=== PATIENT | female | born 1945 | race Caucasian/White ===

== ENCOUNTER → 2018-06-12 | Outpatient (CLI) | payer OTHER ==
[~2018-06-12] MED LIST: Acidophilus La1 EACH PO; Alprazolam0.25 MG PO; DULO60 PO; GABA300 PO; HYDACE10B PO; IPRA.03NI; LISI20; Mobic15 MG PO; TEMA30 PO; ZALE10
== END | disposition home or self-care (01) ==
LOC: PLD 07:45 → LAB SHORT 07:45
DX: D22.62 Melanocytic nevi of left upper limb, including shoulder (principal)
CPT/HCPCS: 88305

== ENCOUNTER 2018-07-19 19:15 | Inpatient (IN) | payer OTHER ==
[~2018-07-19] VITALS: Ht 167.6 cm; Wt 78.4 kg
[~2018-07-19 19:15] MED LIST changes: -ALBU90OI61 INH; -Abilify2 MG PO; -CEPH500 PO; -FURO40 PO; -HYDCOR10 PO; -PARO10 PO; -PRED5 PO; -Zanaflex4 MG PO
[2018-07-19 19:54] LABS: BASOPHILS ABSOLUTE AUTO 0.05 K/mm3 (0.00-0.23); BASOPHILS PERCENT AUTO 0 % (0-2); EOSINOPHILS ABSOLUTE AUTO 0.01 K/mm3 (0.00-0.68); EOSINOPHILS PERCENT AUTO 0 % (0-6); Hematocrit 36.4 % (33.0-51.0); Hemoglobin 12.6 g/dL (11.5-16.0); IMMATURE GRAN ABSOLUTE AUTO 0.11 K/mm3 (0.00-0.10); IMMATURE GRAN PERCENT AUTO 1 % (0-1); LYMPHOCYTES ABSOLUTE AUTO 1.21 K/mm3 (0.84-5.20); LYMPHOCYTES PERCENT AUTO 6 % (21-46); MONOCYTES ABSOLUTE AUTO 1.17 K/mm3 (0.16-1.47); MONOCYTES PERCENT AUTO 6 % (4-13); Mean Corpuscular HGB 31.3 pg (26.0-34.0); Mean Corpuscular HGB Conc 34.6 g/dL (31.5-36.5); Mean Corpuscular Volume 91 fL (80-100); Mean Platelet Volume 8.9 fL (9.1-12.4); NEUTROPHILS ABSOLUTE AUTO 17.04 K/mm3 (1.96-9.15); NEUTROPHILS PERCENT AUTO 87 % (41-73); Platelet Count 363 K/mm3 (150-400); RDW Coefficient Variation 13.2 % (11.7-14.2); RDW Standard Deviation 43.5 fL (35.1-46.3); Red Blood Cell Count 4.02 M/mm3 (3.80-5.20); White Blood Cell Count 19.59 K/mm3 (4.00-11.30)
[2018-07-19 20:17] LABS: Albumin, Blood 3.6 g/dL (3.4-5.0); Bilirubin, Total 0.7 mg/dL (0.1-1.0); Bun/Creatinine Ratio 22.4 (12.0-20.0); Creatinine, Blood 1.7 mg/dL (0.40-1.00); Globulin, Blood 3.7 g/dL (2.2-4.0); Potassium, Blood 3.4 mmol/L (3.5-5.5); Total Protein, Blood 7.3 g/dL (6.4-8.2)
[2018-07-19] MEDS ORDERED: PRED5 PO (21:47)
[2018-07-19] MEDS ORDERED: ALBU90OI61 INH (21:47)
[2018-07-19] MEDS ORDERED: FURO40 PO (21:47)
[2018-07-19] MEDS ORDERED: PARO10 PO (21:48)
[2018-07-19] MEDS ORDERED: Zanaflex4 MG PO (21:48)
[2018-07-19] MEDS ORDERED: Abilify2 MG PO (21:49)
--- NOTE | 2018-07-19 23:37 | NUR ---
PT ARRIVES TO ROOM 224 FROM ED DX SEPSIS SECONDARY TO TENSOYNOVITIS IN LEFT INDEX FINGER. PT WITH AN APPROX 1 CM TRANSVERSE LAC IN MIDDLE POST SIDE OF FINGER. NO DRAINAGE AT THIS TIME. PT HAS ERYTHEMA STREAKS ALL THE WAY UP FOR FA. WOUND WAS CLEANED WELL, PHOTO TAKEN, THEN WRAPPED WOUND WITH KERLEX AND SECURED WITH TAPE. LEFT HAND ELEVATED AND ICE APPLIED. PT WILL BE NPO AT MIDNIGHT FOR I&D TOMORROW WITH DR. GRAHAM. IVF INFUSING AND PHARMACY TO DOSE VANCO.
[2018-07-20 04:24] LABS: BASOPHILS ABSOLUTE AUTO 0.03 K/mm3 (0.00-0.23); BASOPHILS PERCENT AUTO 0 % (0-2); EOSINOPHILS ABSOLUTE AUTO 0.03 K/mm3 (0.00-0.68); EOSINOPHILS PERCENT AUTO 0 % (0-6); Hematocrit 31.5 % (33.0-51.0); Hemoglobin 10.8 g/dL (11.5-16.0); IMMATURE GRAN ABSOLUTE AUTO 0.05 K/mm3 (0.00-0.10); IMMATURE GRAN PERCENT AUTO 1 % (0-1); LYMPHOCYTES ABSOLUTE AUTO 0.79 K/mm3 (0.84-5.20); LYMPHOCYTES PERCENT AUTO 8 % (21-46); MONOCYTES PERCENT AUTO 7 % (4-13); Mean Corpuscular HGB 32.3 pg (26.0-34.0); Mean Corpuscular HGB Conc 34.3 g/dL (31.5-36.5); Mean Platelet Volume 8.8 fL (9.1-12.4); NEUTROPHILS ABSOLUTE AUTO 8.19 K/mm3 (1.96-9.15); NEUTROPHILS PERCENT AUTO 84 % (41-73); Platelet Count 276 K/mm3 (150-400); RDW Coefficient Variation 13.2 % (11.7-14.2); RDW Standard Deviation 45.7 fL (35.1-46.3); Red Blood Cell Count 3.34 M/mm3 (3.80-5.20); White Blood Cell Count 9.79 K/mm3 (4.00-11.30)
[2018-07-20 04:31] LABS: Mean Corpuscular Volume 94 fL (80-100)
[2018-07-20 04:51] LABS: Anion Gap 8 mmol/L (6-16); Blood Urea Nitrogen 36 mg/dL (8-24); Bun/Creatinine Ratio 23.1 (12.0-20.0); CO2, Blood 28 mmol/L (21-32); Calcium, Blood 8.1 mg/dL (8.5-10.1); Chloride, Blood 96 mmol/L (98-108); Creatinine, Blood 1.56 mg/dL (0.40-1.00); Glomerular Filtration Rate 34 (60-); Glucose, Blood 92 mg/dL (70-99); Sodium, Blood 132 mmol/L (136-145); Vancomycin, Random 23.3 ug/mL
--- NOTE | 2018-07-20 05:16 | NUR ---
NEW ADMIT THIS SHIFT FOR TENOSYNOVITIS. HAS DONE GREAT DURING THE NIGHT. PAIN HAS IMPROVED, LABS IMPROVED AND AFEBRILE THIS AM. PLAN FOR I&D OF WOUND TODAY. CONT WITH IVF AND IV ABX. PT NPO, SURGICAL PACKET ON CHART. CALL LIGHT IN REACH. WILL REPORT OFF TO NEXT SHIFT.
--- NOTE | 2018-07-20 05:21 | NUR ---
DID NOT K WAS 3.[address] ADAMS AND OBTAINED ORDER FOR KCL 40MEQ.
--- NOTE | 2018-07-20 19:25 | NUR ---
SUMMARY VSS, L INDEX FINGER ELEVATED, DSG CHANGED AFTER SHOWER TODAY, DRAINING SS DRAINAGE, AMBULATING IN ROOM WITH A WALKER, NPO AFTER MN FOR I&D IN AM.
[2018-07-21 04:41] LABS: BASOPHILS ABSOLUTE AUTO 0.03 K/mm3 (0.00-0.23); BASOPHILS PERCENT AUTO 0 % (0-2); EOSINOPHILS ABSOLUTE AUTO 0.04 K/mm3 (0.00-0.68); EOSINOPHILS PERCENT AUTO 0 % (0-6); Hematocrit 30.3 % (33.0-51.0); Hemoglobin 10.2 g/dL (11.5-16.0); IMMATURE GRAN ABSOLUTE AUTO 0.04 K/mm3 (0.00-0.10); IMMATURE GRAN PERCENT AUTO 0 % (0-1); LYMPHOCYTES ABSOLUTE AUTO 1.04 K/mm3 (0.84-5.20); LYMPHOCYTES PERCENT AUTO 11 % (21-46); MONOCYTES ABSOLUTE AUTO 0.73 K/mm3 (0.16-1.47); MONOCYTES PERCENT AUTO 8 % (4-13); Mean Corpuscular HGB 31.6 pg (26.0-34.0); Mean Corpuscular HGB Conc 33.7 g/dL (31.5-36.5); Mean Corpuscular Volume 94 fL (80-100); Mean Platelet Volume 9.1 fL (9.1-12.4); NEUTROPHILS PERCENT AUTO 80 % (41-73); Platelet Count 240 K/mm3 (150-400); RDW Coefficient Variation 13.2 % (11.7-14.2); RDW Standard Deviation 45.3 fL (35.1-46.3); Red Blood Cell Count 3.23 M/mm3 (3.80-5.20); White Blood Cell Count 9.38 K/mm3 (4.00-11.30)
[2018-07-21 05:02] LABS: Bun/Creatinine Ratio 19.8 (12.0-20.0); Calcium, Blood 8.1 mg/dL (8.5-10.1); Creatinine, Blood 1.06 mg/dL (0.40-1.00); Potassium, Blood 3.1 mmol/L (3.5-5.5)
--- NOTE | 2018-07-21 05:02 | NUR ---
PT VSS T/O NIGHT, PAIN MGD W/NORCO W/REP RELIEF. LUE ELEVATED IN BED, DRESSING INTACT W/NO VISIBLE DRNG NOTED. PT DENIED CHANGES IN SENSATION. PT NPO POST MIDNIGHT FOR POSS OR TODAY; IVF CONT PER ORDERS. PT UP IN ROOM W/FWW+SBA, IS USING CALL LIGHT FOR ASSISTANCE, WILL CONT TO MONITOR UNTIL REP GIVEN TO ONCOMING RN.
--- NOTE | 2018-07-21 18:51 | NUR ---
SUMMARY MEDICATED WITH 1 NORCO FOR PAIN X2 TODAY, AMBULATED DOWN THE HALLS WITH A WALKER, TOLERATED WELL, VSS, DSG CHANGED BY DR. OLSON TODAY, L HAND ELEVATED WITH PILLOWS, NO ACUTE CHANGES THIS SHIFT
[2018-07-22 04:17] LABS: BASOPHILS ABSOLUTE AUTO 0.01 K/mm3 (0.00-0.23); BASOPHILS PERCENT AUTO 0 % (0-2); EOSINOPHILS ABSOLUTE AUTO 0.01 K/mm3 (0.00-0.68); EOSINOPHILS PERCENT AUTO 0 % (0-6); Hematocrit 30.2 % (33.0-51.0); Hemoglobin 10.2 g/dL (11.5-16.0); IMMATURE GRAN ABSOLUTE AUTO 0.06 K/mm3 (0.00-0.10); IMMATURE GRAN PERCENT AUTO 1 % (0-1); LYMPHOCYTES ABSOLUTE AUTO 0.96 K/mm3 (0.84-5.20); LYMPHOCYTES PERCENT AUTO 11 % (21-46); MONOCYTES ABSOLUTE AUTO 0.55 K/mm3 (0.16-1.47); MONOCYTES PERCENT AUTO 6 % (4-13); Mean Corpuscular HGB 31.6 pg (26.0-34.0); Mean Corpuscular HGB Conc 33.8 g/dL (31.5-36.5); Mean Corpuscular Volume 94 fL (80-100); Mean Platelet Volume 9.2 fL (9.1-12.4); NEUTROPHILS ABSOLUTE AUTO 7.42 K/mm3 (1.96-9.15); NEUTROPHILS PERCENT AUTO 82 % (41-73); Platelet Count 293 K/mm3 (150-400); RDW Standard Deviation 44.7 fL (35.1-46.3); Red Blood Cell Count 3.23 M/mm3 (3.80-5.20); White Blood Cell Count 9.01 K/mm3 (4.00-11.30)
[2018-07-22 04:32] LABS: Anion Gap 7 mmol/L (6-16); Blood Urea Nitrogen 13 mg/dL (8-24); Bun/Creatinine Ratio 14.7 (12.0-20.0); CO2, Blood 25 mmol/L (21-32); Calcium, Blood 8.4 mg/dL (8.5-10.1); Chloride, Blood 105 mmol/L (98-108); Creatinine, Blood 0.88 mg/dL (0.40-1.00); Glomerular Filtration Rate >60 (60-); Glucose, Blood 111 mg/dL (70-99); Potassium, Blood 3.7 mmol/L (3.5-5.5); Sodium, Blood 137 mmol/L (136-145)
--- NOTE | 2018-07-22 05:51 | NUR ---
SHIFT SUMMARY: NO ACUTE CHANGES OVER NIGHT. PT A&O X4, VS WNL. PAIN MANAGED WITH NORCO PER EMAR. IND IN ROOM W/FWW. VOIDING WELL. GAUZE TO L 2ND DIGIT INTACT WITH SML AMT OF DRG NOTED. WILL CTM AND REPORT TO DAY RN.
--- NOTE | 2018-07-22 20:30 | NUR ---
CHANGED ON MY FINGER."
--- NOTE | 2018-07-23 04:36 | NUR ---
SHIFT SUMMARY: NO ACUTE CHANGES OVER NIGHT. PT MEDICATED FOR PAIN PER EMAR. DRESSING TO FINGER IS C/D/I. ABX INFUSING. INDEPENDENT IN RM W/FWW. GRETCHEN ACTIVITY WELL. NO CONCERNS AT THIS TIME.
[2018-07-23 05:41] LABS: BASOPHILS ABSOLUTE AUTO 0.01 K/mm3 (0.00-0.23); BASOPHILS PERCENT AUTO 0 % (0-2); EOSINOPHILS ABSOLUTE AUTO 0.01 K/mm3 (0.00-0.68); EOSINOPHILS PERCENT AUTO 0 % (0-6); Hematocrit 30.9 % (33.0-51.0); Hemoglobin 10.4 g/dL (11.5-16.0); IMMATURE GRAN ABSOLUTE AUTO 0.06 K/mm3 (0.00-0.10); IMMATURE GRAN PERCENT AUTO 1 % (0-1); LYMPHOCYTES ABSOLUTE AUTO 1.14 K/mm3 (0.84-5.20); LYMPHOCYTES PERCENT AUTO 16 % (21-46); MONOCYTES ABSOLUTE AUTO 0.54 K/mm3 (0.16-1.47); MONOCYTES PERCENT AUTO 8 % (4-13); Mean Corpuscular HGB 32.2 pg (26.0-34.0); Mean Corpuscular HGB Conc 33.7 g/dL (31.5-36.5); Mean Corpuscular Volume 96 fL (80-100); Mean Platelet Volume 9.2 fL (9.1-12.4); NEUTROPHILS ABSOLUTE AUTO 5.31 K/mm3 (1.96-9.15); NEUTROPHILS PERCENT AUTO 75 % (41-73); Platelet Count 307 K/mm3 (150-400); Red Blood Cell Count 3.23 M/mm3 (3.80-5.20); White Blood Cell Count 7.07 K/mm3 (4.00-11.30)
[2018-07-23 06:03] LABS: Anion Gap 5 mmol/L (6-16); Blood Urea Nitrogen 10 mg/dL (8-24); Bun/Creatinine Ratio 13.1 (12.0-20.0); CO2, Blood 27 mmol/L (21-32); Calcium, Blood 8.5 mg/dL (8.5-10.1); Chloride, Blood 106 mmol/L (98-108); Creatinine, Blood 0.77 mg/dL (0.40-1.00); Glomerular Filtration Rate >60 (60-); Glucose, Blood 110 mg/dL (70-99); Sodium, Blood 138 mmol/L (136-145)
--- NOTE | 2018-07-23 10:20 | NUR ---
DR ARMENDARIZ HERE TO SEE PT.
--- NOTE | 2018-07-23 13:10 | NUR ---
PT REQ TO HAVE NEW IV PLACED TO L[facility]. DISCUSSED SWITCHING TO PO. PT REQ TO HAVE IV ABX UNTIL SEEN BY DR Jensen
[2018-07-23] MEDS ORDERED: HYDCOR10 PO (18:03)
[2018-07-23] MEDS ORDERED: CEPH500 PO (18:03)
--- NOTE | 2018-07-23 18:15 | NUR ---
DISCHARGE: PT REPORTS UNDERSTANDING OF DISCHARGE INSTRUCTIONS INCLUDING DRESSING CHANGES, WHICH WAS RECENTLY DONE PER DR Jensen'S INSTRUCTIONS. PT SENT WITH DRESSING SUPPLIES. MEDICATIONS CALLED TO PT'S PHARMACY OF CHOICE. FAMILY HERE TO GIVE PT RIDE HOME. PT SENT WITH BELONGINGS WELL.
== END 2018-07-23 18:15 | disposition home or self-care (01) | DRG 872 ==
LOC: ER 19:15 → SURS 21:37
PROVIDERS: Internal Medicine; Physician Assistant; ADMIT Hospitalist
PROC: 0HDGXZZ Extraction of Left Hand Skin, External Approach (ICD-10-PCS; principal; 2018-07-20)
DX: A41.02 Sepsis due to Methicillin resistant Staphylococcus aureus (principal); N17.9 Acute kidney failure, unspecified; E87.1 Hypo-osmolality and hyponatremia; E27.40 Unspecified adrenocortical insufficiency; R65.20 Severe sepsis without septic shock; L03.012 Cellulitis of left finger; E87.6 Hypokalemia; F32.9 Major depressive disorder, single episode, unspecified; I10 Essential (primary) hypertension; Z85.3 Personal history of malignant neoplasm of breast; Z79.52 Long term (current) use of systemic steroids; G62.9 Polyneuropathy, unspecified; M79.7 Fibromyalgia; J44.9 Chronic obstructive pulmonary disease, unspecified; F17.210 Nicotine dependence, cigarettes, uncomplicated; E86.0 Dehydration
CPT/HCPCS: 36415; 73140; 80048; 80053; 80202; 83605; 85025; 90471; 90714; 93005; 93010; 94760; 94762; 96361; 96374; 96375; 99284-25; J0690; J1170; J1650; J1720; J2543; J3010; J3370; J7030; J7050; J7120

== ENCOUNTER → 2018-07-19 | Outpatient (CLI) | payer OTHER ==
[~2018-07-19] MED LIST changes: +ALBU90OI61 INH; +Abilify2 MG PO; +CEPH500 PO; +FURO40 PO; -HYDACE10B PO; +HYDCOR10 PO; -LISI20; +Norco 10-325 T1 EACH PO; +PARO10 PO; +PRED5 PO; +ZESTORETIC 20-1 EAC1 PO; +Zanaflex4 MG PO
== END | disposition home or self-care (01) ==
LOC: LAB SHORT 20:08 → LAB EV 20:08
DX: L08.9 Local infection of the skin and subcutaneous tissue, unspecified (principal)
CPT/HCPCS: 87070; 87075; 87077; 87147; 87186; 87205

== ENCOUNTER 2018-08-04 12:00 | Day surgery (SDC) | payer OTHER ==
[~2018-08-04 12:00] MED LIST changes: +ALBU90OI61 INH; +Abilify2 MG PO; +CEPH500 PO; +FURO40 PO; +HYDCOR10 PO; +PARO10 PO; +PRED5 PO; +Zanaflex4 MG PO
== END 2018-08-04 23:49 | disposition home or self-care (01) ==
LOC: WOUND 12:00
DX: S61.211A Laceration without foreign body of left index finger without damage to nail, initial encounter (principal); B95.0 Streptococcus, group A, as the cause of diseases classified elsewhere; B95.61 Methicillin susceptible Staphylococcus aureus infection as the cause of diseases classified elsewhere; I12.0 Hypertensive chronic kidney disease with stage 5 chronic kidney disease or end stage renal disease; N18.6 End stage renal disease; D63.1 Anemia in chronic kidney disease; J45.909 Unspecified asthma, uncomplicated; M19.90 Unspecified osteoarthritis, unspecified site; F17.210 Nicotine dependence, cigarettes, uncomplicated; W26.8XXA Contact with other sharp object(s), not elsewhere classified, initial encounter
CPT/HCPCS: G0463

== ENCOUNTER 2018-08-11 14:30 | Day surgery (SDC) | payer OTHER | END 2018-08-11 16:00 | disposition home or self-care (01) | LOC: WOUND 14:30 | DX: S61.211A Laceration without foreign body of left index finger without damage to nail, initial encounter (principal); B95.0 Streptococcus, group A, as the cause of diseases classified elsewhere; B95.61 Methicillin susceptible Staphylococcus aureus infection as the cause of diseases classified elsewhere; I12.0 Hypertensive chronic kidney disease with stage 5 chronic kidney disease or end stage renal disease; N18.6 End stage renal disease; D63.1 Anemia in chronic kidney disease; J45.909 Unspecified asthma, uncomplicated | CPT/HCPCS: G0463 ==

== ENCOUNTER 2018-08-18 14:47 | Day surgery (SDC) | payer OTHER | END 2018-08-18 23:05 | disposition home or self-care (01) | LOC: WOUND 14:47 | DX: S61.211A Laceration without foreign body of left index finger without damage to nail, initial encounter (principal); B95.0 Streptococcus, group A, as the cause of diseases classified elsewhere; B95.61 Methicillin susceptible Staphylococcus aureus infection as the cause of diseases classified elsewhere; I89.0 Lymphedema, not elsewhere classified; J45.909 Unspecified asthma, uncomplicated; I12.0 Hypertensive chronic kidney disease with stage 5 chronic kidney disease or end stage renal disease; N18.6 End stage renal disease; W45.8XXA Other foreign body or object entering through skin, initial encounter | CPT/HCPCS: G0463 ==

== ENCOUNTER 2018-08-25 14:45 | Day surgery (SDC) | payer OTHER | END 2018-08-25 23:02 | disposition home or self-care (01) | LOC: WOUND 14:45 | DX: S61.211A Laceration without foreign body of left index finger without damage to nail, initial encounter (principal); B95.0 Streptococcus, group A, as the cause of diseases classified elsewhere; B95.61 Methicillin susceptible Staphylococcus aureus infection as the cause of diseases classified elsewhere; I12.0 Hypertensive chronic kidney disease with stage 5 chronic kidney disease or end stage renal disease; N18.6 End stage renal disease; D63.1 Anemia in chronic kidney disease; M06.9 Rheumatoid arthritis, unspecified; M19.90 Unspecified osteoarthritis, unspecified site; G62.9 Polyneuropathy, unspecified; J45.909 Unspecified asthma, uncomplicated ==

== ENCOUNTER 2018-09-01 00:26 | Day surgery (SDC) | payer OTHER | END 2018-09-02 22:59 | disposition home or self-care (01) | LOC: WOUND 00:26 | DX: S61.211A Laceration without foreign body of left index finger without damage to nail, initial encounter (principal); B95.0 Streptococcus, group A, as the cause of diseases classified elsewhere; B95.61 Methicillin susceptible Staphylococcus aureus infection as the cause of diseases classified elsewhere; J45.909 Unspecified asthma, uncomplicated; I12.0 Hypertensive chronic kidney disease with stage 5 chronic kidney disease or end stage renal disease; N18.6 End stage renal disease; M06.9 Rheumatoid arthritis, unspecified; M19.90 Unspecified osteoarthritis, unspecified site ==

== ENCOUNTER 2018-09-08 00:36 | Day surgery (SDC) | payer OTHER | END 2018-09-08 23:16 | disposition home or self-care (01) | LOC: WOUND 00:36 | DX: S61.211A Laceration without foreign body of left index finger without damage to nail, initial encounter (principal); B95.0 Streptococcus, group A, as the cause of diseases classified elsewhere; B95.61 Methicillin susceptible Staphylococcus aureus infection as the cause of diseases classified elsewhere ==

== ENCOUNTER 2018-09-22 14:49 | Day surgery (SDC) | payer OTHER | END 2018-09-22 23:06 | disposition home or self-care (01) | LOC: WOUND 14:49 | DX: S61.211A Laceration without foreign body of left index finger without damage to nail, initial encounter (principal); B95.0 Streptococcus, group A, as the cause of diseases classified elsewhere; B95.61 Methicillin susceptible Staphylococcus aureus infection as the cause of diseases classified elsewhere; W26.8XXA Contact with other sharp object(s), not elsewhere classified, initial encounter | CPT/HCPCS: G0463 ==

== ENCOUNTER 2018-09-25 08:16 | Emergency (ER) | payer OTHER ==
[~2018-09-25] VITALS: Ht 157.5 cm; Wt 77.1 kg
[2018-09-25 08:51] LABS: Source, Urine Catheter
[2018-09-25 08:54] LABS: Bilirubin, Urine Neg (Neg); Blood, Urine Neg (Neg); Glucose Qualitative, Urine Neg (Neg); Ketones, Urine Neg (Neg); Leukocyte Esterase, Urine 2+ (Neg); Nitrite, Urine Neg (Neg); Protein, Urine Neg (Neg); Urobilinogen, Urine NORM (Normal)
[2018-09-25 09:28] LABS: Appearance, Urine Hazy (Clear); Color, Urine Yellow (P-Yellow)
[2018-09-25 09:31] LABS: Bacteria Mod /hpf; Red Blood Cells, Urine 0-2 /hpf (0-2); Squamous Epithelial Cells Many /hpf (Few)
[2018-09-25] MEDS ORDERED: PARO10 PO (14:36)
[2018-09-25] MEDS ORDERED: Sulfamethoxazo1 EAC4 PO (14:36)
[2018-09-25] MEDS ORDERED: FURO40 PO (14:37)
[2018-09-25] MEDS ORDERED: ZESTORETIC 20-251 EA PO (14:37)
[2018-09-25] MEDS ORDERED: Mobic15 MG PO (14:38)
== END 2018-09-25 17:16 | disposition home or self-care (01) ==
LOC: ER 08:16
PROVIDERS: Emergency Medicine
DX: R33.9 Retention of urine, unspecified (principal); Z79.899 Other long term (current) drug therapy; F17.210 Nicotine dependence, cigarettes, uncomplicated
CPT/HCPCS: 76857; 81001; 87086; 99284-25; P9612

== ENCOUNTER 2018-12-06 10:31 | Emergency (ER) | payer OTHER ==
[~2018-12-06] VITALS: Ht 165.1 cm; Wt 72.6 kg
[~2018-12-06 10:31] MED LIST changes: +Sulfamethoxazo1 EAC4 PO; +ZESTORETIC 20-251 EA PO
[2018-12-06] MEDS ORDERED: Hydrocodone-Ap1 EA20 PO (10:43)
[2018-12-06 12:00] LABS: Source, Urine Catheter
[2018-12-06 12:03] LABS: Bilirubin, Urine Neg (Neg); Blood, Urine 1+ (Neg); Glucose Qualitative, Urine Neg (Neg); Ketones, Urine Neg (Neg); Leukocyte Esterase, Urine 3+ (Neg); Nitrite, Urine Pos (Neg); Protein, Urine Neg (Neg); Urobilinogen, Urine NORM (Normal)
[2018-12-06 12:09] LABS: Appearance, Urine Hazy (Clear); Color, Urine Yellow (P-Yellow)
[2018-12-06 12:11] LABS: Red Blood Cells, Urine 0-2 /hpf (0-2); White Blood Cells, Urine 50-100 /hpf (0-5)
[2018-12-06 12:12] LABS: Amorphous Heavy ({null, 0-Heavy}); Bacteria Many /hpf; Squamous Epithelial Cells Not Seen /hpf (Few)
[2018-12-06 12:13] LABS: Transitional Epithelial Cells Few /hpf ({null, 0-Rare})
== END 2018-12-06 12:10 | disposition home or self-care (01) ==
LOC: ER 10:31
PROVIDERS: Emergency Medicine
DX: T83.038A Leakage of other urinary catheter, initial encounter (principal); R33.9 Retention of urine, unspecified; Z79.899 Other long term (current) drug therapy; F17.200 Nicotine dependence, unspecified, uncomplicated
CPT/HCPCS: 81001; 87077; 87086; 87186; 99283

== ENCOUNTER → 2019-01-03 | Outpatient (CLI) | payer OTHER ==
[~2019-01-03] MED LIST changes: +Hydrocodone-Ap1 EA20 PO
== END | disposition home or self-care (01) ==
LOC: LAB EV 12:25 → LAB SHORT 12:25
DX: N39.0 Urinary tract infection, site not specified (principal)
CPT/HCPCS: 87077; 87086; 87186

== ENCOUNTER 2019-10-01 14:08 | Inpatient (IN) | payer OTHER ==
[~2019-10-01] VITALS: Ht 162.6 cm; Wt 65.8 kg
[2019-10-01 14:29] LABS: BASOPHILS ABSOLUTE AUTO 0.02 K/mm3 (0.00-0.23); BASOPHILS PERCENT AUTO 0 % (0-2); EOSINOPHILS ABSOLUTE AUTO 0.01 K/mm3 (0.00-0.68); EOSINOPHILS PERCENT AUTO 0 % (0-6); Hematocrit 32.8 % (33.0-51.0); Hemoglobin 11.6 g/dL (11.5-16.0); IMMATURE GRAN ABSOLUTE AUTO 0.02 K/mm3 (0.00-0.10); IMMATURE GRAN PERCENT AUTO 0 % (0-1); LYMPHOCYTES ABSOLUTE AUTO 0.68 K/mm3 (0.84-5.20); LYMPHOCYTES PERCENT AUTO 15 % (21-46); MONOCYTES ABSOLUTE AUTO 0.42 K/mm3 (0.16-1.47); MONOCYTES PERCENT AUTO 9 % (4-13); Mean Corpuscular HGB 29.9 pg (26.0-34.0); Mean Corpuscular HGB Conc 35.4 g/dL (31.5-36.5); Mean Corpuscular Volume 85 fL (80-100); Mean Platelet Volume 8.8 fL (9.1-12.4); NEUTROPHILS ABSOLUTE AUTO 3.52 K/mm3 (1.96-9.15); NEUTROPHILS PERCENT AUTO 75 % (41-73); Platelet Count 297 K/mm3 (150-400); RDW Coefficient Variation 11.9 % (11.7-14.2); RDW Standard Deviation 36.5 fL (35.1-46.3); Red Blood Cell Count 3.88 M/mm3 (3.80-5.20); White Blood Cell Count 4.67 K/mm3 (4.00-11.30)
[2019-10-01 15:03] LABS: Alanine Aminotransfer (ALT/SGP 20 U/L (12-78); Albumin, Blood 3.3 g/dL (3.4-5.0); Albumin/Globulin Ratio 1.1 (0.8-1.8); Alk Phos 95 U/L (50-136); Anion Gap 10 mmol/L (6-16); Aspartate Aminotrans (AST/SGOT 20 U/L (12-37); Bilirubin, Total 0.4 mg/dL (0.1-1.0); Blood Urea Nitrogen 24 mg/dL (8-24); Bun/Creatinine Ratio 18.9 (12.0-20.0); CO2, Blood 29 mmol/L (21-32); Calcium, Blood 7.7 mg/dL (8.5-10.1); Chloride, Blood 82 mmol/L (98-108); Creatinine, Blood 1.27 mg/dL (0.40-1.00); Globulin, Blood 3.1 g/dL (2.2-4.0); Glomerular Filtration Rate 44 (60-); Glucose, Blood 111 mg/dL (70-99); Potassium, Blood 2.9 mmol/L (3.5-5.5); Sodium, Blood 121 mmol/L (136-145); Total Protein, Blood 6.4 g/dL (6.4-8.2); Troponin I <0.015 ng/mL (0.000-0.040)
[2019-10-01] MEDS ORDERED: POTCHL20ER PO (16:35)
[2019-10-01] MEDS ORDERED: ESCI10 PO (16:36)
[2019-10-01] MEDS ORDERED: Norco 10-325 T1 EACH PO (16:36)
[2019-10-01] MEDS ORDERED: BUME2 PO (16:36)
[2019-10-01] MEDS ORDERED: ZALE10 PO (16:36)
[2019-10-01] MEDS ORDERED: DICY20 PO (16:37)
[2019-10-01] MEDS ORDERED: LISINOPRIL-HCT1 EAC1 PO (16:37)
[2019-10-01] MEDS ORDERED: ASCO500 PO (16:38)
[2019-10-01] MEDS ORDERED: Fludrocortison0.1 MG PO (16:38)
[2019-10-01] MEDS ORDERED: PREG100 PO (16:38)
[2019-10-01 20:07] LABS: Bun/Creatinine Ratio 21.2 (12.0-20.0); Calcium, Blood 7.6 mg/dL (8.5-10.1); Creatinine, Blood 1.13 mg/dL (0.40-1.00); Potassium, Blood 3.1 mmol/L (3.5-5.5)
[2019-10-02 05:22] LABS: Hematocrit 29.2 % (33.0-51.0); Hemoglobin 10.4 g/dL (11.5-16.0); Mean Corpuscular HGB 30.6 pg (26.0-34.0); Mean Corpuscular HGB Conc 35.6 g/dL (31.5-36.5); Mean Corpuscular Volume 86 fL (80-100); Platelet Count 295 K/mm3 (150-400); RDW Standard Deviation 37.9 fL (35.1-46.3); White Blood Cell Count 3.17 K/mm3 (4.00-11.30)
[2019-10-02 05:49] LABS: Calcium, Blood 7.5 mg/dL (8.5-10.1); Creatinine, Blood 1.04 mg/dL (0.40-1.00); Magnesium, Blood 1.5 mg/dL (1.6-2.4); Potassium, Blood 2.8 mmol/L (3.5-5.5)
--- NOTE | 2019-10-02 07:13 | NUR ---
SUMMARY PT ARRIVED TO FLOOR IN NO DISTRESS. PT HAS REMAINED IN BED AND DENIED ANY DIZZINESS. PT SLEPT WELL AFTER EATING. PT IS AWAKE THIS AM IN NO DISTRESS. CALL LIGHT IN REACH
--- NOTE | 2019-10-02 17:14 | NUR ---
PT HAS BEEN AOX4 AND COOPERATIVE OF CARE. PT IS A ONE PERSON TO BEDSIDE COMMODE TO HELP WITH HER LINES. PT CALLS APPROPRIATELY AND HAS CALL LIGHT WITHING REACH. DENIES ANY PAIN AT THIS TIME WILL CONTINUE TO MONITOR.
--- NOTE | 2019-10-03 04:23 | NUR ---
SUMMARY PT HAD NO ISSUES NOTED. PT EAGER TO GO HOME. PTHAS SLEPT T/O SHIFT. PT CURRENTLY SLEEPING AND BREATHING EASY. CALL LIGHT IN REACH.
[2019-10-03 09:29] LABS: Anion Gap 6 mmol/L (6-16); Blood Urea Nitrogen 15 mg/dL (8-24); Bun/Creatinine Ratio 16.6 (12.0-20.0); CO2, Blood 26 mmol/L (21-32); Calcium, Blood 7.8 mg/dL (8.5-10.1); Chloride, Blood 99 mmol/L (98-108); Glomerular Filtration Rate >60 (60-); Glucose, Blood 79 mg/dL (70-99); Magnesium, Blood 1.6 mg/dL (1.6-2.4); Potassium, Blood 3.6 mmol/L (3.5-5.5); Sodium, Blood 131 mmol/L (136-145)
[2019-10-03 09:39] LABS: Source, Urine Clean Catch
[2019-10-03 09:46] LABS: Bilirubin, Urine Neg (Neg); Blood, Urine Neg (Neg); Glucose Qualitative, Urine Neg (Neg); Ketones, Urine Neg (Neg); Leukocyte Esterase, Urine 3+ (Neg); Nitrite, Urine Pos (Neg); Protein, Urine Neg (Neg); Specific Gravity, Urine 1.005 (1.003-1.022); Urobilinogen, Urine NORM (Normal)
[2019-10-03 10:08] LABS: Appearance, Urine Hazy (Clear); Color, Urine Pale Yellow (P-Yellow)
[2019-10-03 10:15] LABS: Red Blood Cells, Urine 0-2 /hpf (0-2)
[2019-10-03 10:16] LABS: Bacteria Many /hpf; Squamous Epithelial Cells Rare /hpf (Few)
--- NOTE | 2019-10-03 14:12 | NUR ---
DISCHARGE INSTRUCTIONS REVIEWED WITH PT. IV DC'D INTACT BY RN STUDENT. F/U APPT MADE WITH DR PARKER FOR TUESDAY. NO NEW RX. PT AWAITING DAUGHTER FOR RIDE HOME.
--- NOTE | 2019-10-03 14:25 | NUR ---
PT DISCHARGED HOME, ESCORTED OUT TO DAUGHTER AT 1425.
== END 2019-10-03 14:25 | disposition home or self-care (01) | DRG 312 ==
LOC: ER 14:08 → PCU 14:09 → MEDS 19:51
PROVIDERS: Emergency Medicine; Internal Medicine; Nurse Practitioner Acute Care; ADMIT Internal Medicine
DX: I95.1 Orthostatic hypotension (principal); E87.1 Hypo-osmolality and hyponatremia; N17.9 Acute kidney failure, unspecified; R55 Syncope and collapse; E87.6 Hypokalemia; E83.42 Hypomagnesemia; I10 Essential (primary) hypertension; E86.0 Dehydration; T50.1X5A Adverse effect of loop [high-ceiling] diuretics, initial encounter; M79.7 Fibromyalgia; F32.9 Major depressive disorder, single episode, unspecified; G62.0 Drug-induced polyneuropathy; Z85.3 Personal history of malignant neoplasm of breast; Z92.21 Personal history of antineoplastic chemotherapy; Z92.3 Personal history of irradiation
CPT/HCPCS: 36415; 71045; 80048; 80053; 80400; 81001; 82533; 83735; 84100; 84484; 85025; 85027; 93005; 93010; 96361; 96365; 96366; 96367; 96372; 96375; 99285-25; A9270; A9270-GY; G0378; J0834; J1650; J1720; J3475; J3480; J7030

== ENCOUNTER 2019-12-18 09:52 | Day surgery (SDC) | payer OTHER ==
[~2019-12-18] VITALS: Ht 157.5 cm; Wt 68.0 kg
[~2019-12-18 09:52] MED LIST changes: +ASCO500 PO; +BUME2 PO; +DICY20 PO; +ESCI10 PO; +Fludrocortison0.1 MG PO; +LISINOPRIL-HCT1 EAC1 PO; +POTCHL20ER PO; +PREG100 PO; +ZALE10 PO
== END 2019-12-18 11:57 | disposition home or self-care (01) ==
LOC: ORSCSDS 09:52
PROVIDERS: Surgery
PROC: 0DBK8ZX Excision of Ascending Colon, Via Natural or Artificial Opening Endoscopic, Diagnostic (ICD-10-PCS; principal; 2019-12-18 11:00)
DX: Z12.11 Encounter for screening for malignant neoplasm of colon (principal); Z86.010 Personal history of colon polyps; Z80.0 Family history of malignant neoplasm of digestive organs; D12.2 Benign neoplasm of ascending colon; K57.30 Diverticulosis of large intestine without perforation or abscess without bleeding; F17.210 Nicotine dependence, cigarettes, uncomplicated; Z79.899 Other long term (current) drug therapy
CPT/HCPCS: 88305; J2704; J7120

== ENCOUNTER → 2020-10-20 | Outpatient (CLI) | payer OTHER | END | disposition home or self-care (01) | LOC: LAB SHORT 09:10 → LAB 09:10 | DX: L81.4 Other melanin hyperpigmentation (principal) | CPT/HCPCS: 88305; 88342 ==

== ENCOUNTER → 2021-02-24 | Outpatient (CLI) | payer OTHER ==
[2021-02-24 16:11] LABS: Source, Urine Clean Catch
[2021-02-24 19:03] LABS: Appearance, Urine Clear (Clear); Bilirubin, Urine Neg (Neg); Blood, Urine 1+ (Neg); Color, Urine Yellow (P-Yellow); Glucose Qualitative, Urine Neg (Neg); Ketones, Urine Neg (Neg); Leukocyte Esterase, Urine 2+ (Neg); Nitrite, Urine Pos (Neg); Protein, Urine 1+ (Neg); Urobilinogen, Urine NORM (Normal)
[2021-02-24 19:27] LABS: Bacteria Many /hpf; Squamous Epithelial Cells Rare /hpf (Few)
[2021-02-24 19:28] LABS: Amorphous Light (0-Heavy); WBC Cast 0-2 /lpf (0)
== END ==
LOC: LAB 15:45 → LAB SHORT 15:45
PROVIDERS: Family Medicine
DX: N28.9 Disorder of kidney and ureter, unspecified (principal)
CPT/HCPCS: 81001

== ENCOUNTER → 2021-03-06 | Outpatient (CLI) | payer OTHER | END | disposition home or self-care (01) | LOC: LAB 19:26 → LAB SHORT 19:26 | DX: R82.71 Bacteriuria (principal) | CPT/HCPCS: 87086 ==

== ENCOUNTER → 2021-04-07 | Outpatient (CLI) | payer OTHER ==
[2021-04-07 16:30] LABS: Protein, Urine Quantitative <5.0 mg/dL (0.0-11.9)
== END | disposition home or self-care (01) ==
LOC: LAB 13:07 → LAB SHORT 13:07
PROVIDERS: Internal Medicine Nephrology
DX: N18.2 Chronic kidney disease, stage 2 (mild) (principal); D63.1 Anemia in chronic kidney disease; N25.81 Secondary hyperparathyroidism of renal origin; E55.9 Vitamin D deficiency, unspecified; E78.00 Pure hypercholesterolemia, unspecified; D50.9 Iron deficiency anemia, unspecified; D51.8 Other vitamin B12 deficiency anemias; D52.8 Other folate deficiency anemias; R76.9 Abnormal immunological finding in serum, unspecified; R94.5 Abnormal results of liver function studies; R94.6 Abnormal results of thyroid function studies
CPT/HCPCS: 81050; 82043; 82570; 84156

== ENCOUNTER 2021-07-07 12:09 | Day surgery (SDC) | payer OTHER ==
[~2021-07-07] VITALS: Ht 162.6 cm; Wt 94.1 kg
[~2021-07-07 12:09] MED LIST changes: +METO25ER PO; +Prednisone10 MG PO
[2021-07-07] MEDS ORDERED: MELA3 PO (12:35)
--- NOTE | 2021-07-07 12:57 | NUR ---
PT ADMITTED TO [facility]. AGREES WITH PLANNED SURGERY.IN VIA WC. UP WITH STAND BY ASSIST.
--- NOTE | 2021-07-07 12:59 | NUR ---
SUPRA PUBIC CATH IN PLACE, PLUGGED.
--- NOTE | 2021-07-07 15:00 | NUR ---
RIGHT FOREARM IV REMOVED IN OR.
--- NOTE | 2021-07-07 15:06 | NUR ---
3 ATTEMPTS MADE ORD.DXS ORD.AXM ORD.LMA. RIGHT AC LEFT HAND AND RIGHT HAND.
--- NOTE | 2021-07-07 18:19 | NUR ---
SHIFT SUMMARY PT A&OX4, VSS/2LNC, S/P L KD, DRESSING CDI, WIGGLES TOES/MOVES FEET. DENIES PAIN AT THIS TIME. GRETCHEN PO. CHRONIC SUPRAPUBIC CATHETER IN PLACE, VOIDING WELL. FAMILY AT BEDSIDE. WILL REPORT TO ONCOMING NOC RN.
--- NOTE | 2021-07-08 04:04 | NUR ---
SHIFT SUMMARY: RECEIVED PT. FROM TIANNA DURAN AT 0130, PT. WAS COMFORTABLY SLEEPIN ON HIGH ODOM'S POSITION. NONPITTING EDEMA TO BLE NOTED. LHIP WITH PRIMO DRESSING & AQUACEL ON TOP C/D/I.SUPRAPUBIC CATHETER DRAINING YELLOW URINE VIA GRAVITY. PT. DENIES NEW ISSUES, STATED PAIN IS TOLERABLE & DOES NOTNEED PAIN MEDICINE AT THIS TIME. WILL AMBULATE WHEN SHE WAKES UP IN CAN DRYER. NO ACUTE CHANGES NOTED, WILL CONTINUE TO MONITOR.
[2021-07-08 04:21] LABS: BASOPHILS ABSOLUTE AUTO 0.01 K/mm3 (0.00-0.23); BASOPHILS PERCENT AUTO 0 % (0-2); EOSINOPHILS ABSOLUTE AUTO 0.01 K/mm3 (0.00-0.68); EOSINOPHILS PERCENT AUTO 0 % (0-6); Hematocrit 35.8 % (33.0-51.0); Hemoglobin 12.2 g/dL (11.5-16.0); IMMATURE GRAN PERCENT AUTO 1 % (0-1); LYMPHOCYTES ABSOLUTE AUTO 1.14 K/mm3 (0.84-5.20); LYMPHOCYTES PERCENT AUTO 9 % (21-46); MONOCYTES ABSOLUTE AUTO 0.74 K/mm3 (0.16-1.47); MONOCYTES PERCENT AUTO 6 % (4-13); Mean Corpuscular HGB 30.7 pg (26.0-34.0); Mean Corpuscular HGB Conc 34.1 g/dL (31.5-36.5); Mean Corpuscular Volume 90 fL (80-100); NEUTROPHILS ABSOLUTE AUTO 10.21 K/mm3 (1.96-9.15); NEUTROPHILS PERCENT AUTO 84 % (41-73); Platelet Count 252 K/mm3 (150-400); RDW Coefficient Variation 12.9 % (11.7-14.2); RDW Standard Deviation 42.9 fL (35.1-46.3); Red Blood Cell Count 3.97 M/mm3 (3.80-5.20); White Blood Cell Count 12.21 K/mm3 (4.00-11.30)
[2021-07-08 04:47] LABS: Bun/Creatinine Ratio 17.7 (12.0-20.0); Calcium, Blood 8.7 mg/dL (8.5-10.1); Creatinine, Blood 1.13 mg/dL (0.40-1.00); Potassium, Blood 3.6 mmol/L (3.5-5.5)
--- NOTE | 2021-07-08 05:32 | NUR ---
CATHETER CARE DONE WITH READYCLEANSE WIPES, PT. TOLERATED WELL.COMPLAINTSA OF 5/10 PAIN TO L HIP, MEDICATED PER EMAR.
[2021-07-08] MEDS ORDERED: Percocet 5-3251 EACH PO (14:05)
[2021-07-08] MEDS ORDERED: ASPI81CH PO (14:13)
--- NOTE | 2021-07-08 14:44 | NUR ---
DISCHARGE SUMMARY PT POD #1 FOR L HIP ARTHROPLASTY. AQUACEL DRESSING IN PLACE AND CDI. MINIMAL PAIN THIS SHIFT. PT CONCERNED ABOUT BATHING SITUATION POST DISCHARGE. PT ALSO DID NOT HAVE FWW. ROBIN SPOKE WITH THE PATIENT ABOUT CONCERNS AND ADDRESSED THEM. PT WORKED WITH PHYSICAL THERAPY AND CLEARED TO GO HOME. DISCHARGED HOME WITH SONS.
== END 2021-07-08 14:54 | disposition home or self-care (01) ==
LOC: ORSCMMR 12:09 → ORD 13:30 → SURS 16:38 → ORSCMMR 07-08 14:54
PROVIDERS: Orthopaedic Surgery
PROC: 0SRB0JZ Replacement of Left Hip Joint with Synthetic Substitute, Open Approach (ICD-10-PCS; principal; 2021-07-07 13:30)
DX: M16.12 Unilateral primary osteoarthritis, left hip (principal); Z87.891 Personal history of nicotine dependence; I10 Essential (primary) hypertension; F32.A Depression, unspecified; Z79.899 Other long term (current) drug therapy; E66.9 Obesity, unspecified; Z68.35 Body mass index [BMI] 35.0-35.9, adult
CPT/HCPCS: 36415; 72170; 80048; 85025; 97110; 97116; 97162; A9270; C1776; J0171; J0690; J0735; J1100; J1885; J2250; J2370; J2405; J2704; J2795; J3010; J7120; J7512

== ENCOUNTER → 2021-12-11 | Outpatient (CLI) | payer OTHER | LOC: LAB 17:00 | DX: N39.0 Urinary tract infection, site not specified (principal) ==

== ENCOUNTER 2022-09-12 15:11 | Emergency (ER) | payer OTHER ==
[~2022-09-12] VITALS: Ht 167.6 cm; Wt 86.2 kg
[~2022-09-12 15:11] MED LIST changes: +ASPI81CH PO; +MELA3 PO; +Percocet 5-3251 EACH PO
[2022-09-12 15:42] LABS: BASOPHILS ABSOLUTE AUTO 0.04 K/mm3 (0.00-0.23); BASOPHILS PERCENT AUTO 0 % (0-2); EOSINOPHILS ABSOLUTE AUTO 0.01 K/mm3 (0.00-0.68); EOSINOPHILS PERCENT AUTO 0 % (0-6); Hematocrit 40.9 % (33.0-51.0); Hemoglobin 14.8 g/dL (11.5-16.0); IMMATURE GRAN ABSOLUTE AUTO 0.07 K/mm3 (0.00-0.10); IMMATURE GRAN PERCENT AUTO 1 % (0-1); LYMPHOCYTES ABSOLUTE AUTO 0.78 K/mm3 (0.84-5.20); LYMPHOCYTES PERCENT AUTO 8 % (21-46); MONOCYTES ABSOLUTE AUTO 0.35 K/mm3 (0.16-1.47); MONOCYTES PERCENT AUTO 4 % (4-13); Mean Corpuscular HGB Conc 36.2 g/dL (31.5-36.5); Mean Corpuscular Volume 86 fL (80-100); Mean Platelet Volume 9.8 fL (9.1-12.4); NEUTROPHILS ABSOLUTE AUTO 8.13 K/mm3 (1.96-9.15); NEUTROPHILS PERCENT AUTO 87 % (41-73); Platelet Count 290 K/mm3 (150-400); RDW Coefficient Variation 12.6 % (11.7-14.2); RDW Standard Deviation 39.7 fL (35.1-46.3); Red Blood Cell Count 4.77 M/mm3 (3.80-5.20); White Blood Cell Count 9.38 K/mm3 (4.00-11.30)
[2022-09-12 16:05] LABS: Albumin, Blood 3.4 g/dL (3.4-5.0); Bilirubin, Total 0.7 mg/dL (0.1-1.0); Bun/Creatinine Ratio 14.4 (12.0-20.0); Calcium, Blood 8.5 mg/dL (8.5-10.1); Creatinine, Blood 1.04 mg/dL (0.40-1.00); Globulin, Blood 3.3 g/dL (2.2-4.0); Potassium, Blood 2.7 mmol/L (3.5-5.5); Total Protein, Blood 6.7 g/dL (6.4-8.2)
[2022-09-12 16:56] LABS: Source, Urine Clean Catch
[2022-09-12 17:13] LABS: Bilirubin, Urine Neg (Neg); Blood, Urine 2+ (Neg); Glucose Qualitative, Urine Neg (Neg); Ketones, Urine Neg (Neg); Leukocyte Esterase, Urine 3+ (Neg); Nitrite, Urine Neg (Neg); Protein, Urine 1+ (Neg); Specific Gravity, Urine 1.005 (1.003-1.022); Urobilinogen, Urine NORM (Normal)
[2022-09-12 17:32] LABS: Color, Urine Pale Yellow (P-Yellow)
[2022-09-12 17:33] LABS: Appearance, Urine Hazy (Clear)
[2022-09-12 17:35] LABS: Bacteria Many /hpf; Mucus Light (0-Heavy); Squamous Epithelial Cells Few /hpf (Few); White Blood Cells, Urine 25-50 /hpf (0-5)
[2022-09-12] MEDS ORDERED: KLOR-CON 1010 ME9 PO (18:21)
[2022-09-12] MEDS ORDERED: CHLO25B PO (18:21)
[2022-09-12 19:30] VITALS: BP 118/75
[2022-09-12] MEDS ORDERED: CEPH500 PO (19:31)
== END 2022-09-12 20:20 | disposition home or self-care (01) ==
LOC: ER 15:11
PROVIDERS: Physician Assistant
DX: N39.0 Urinary tract infection, site not specified (principal); Z79.899 Other long term (current) drug therapy; Z79.52 Long term (current) use of systemic steroids; Z79.82 Long term (current) use of aspirin; I10 Essential (primary) hypertension; F17.200 Nicotine dependence, unspecified, uncomplicated
CPT/HCPCS: 80053; 81001; 84443; 84484; 85025; 87086; 93005; 93010; 96361; 96365; 99285-25; J0696; J7030

== ENCOUNTER 2023-03-23 18:57 | Emergency (ER) | payer OTHER ==
[~2023-03-23] VITALS: Ht 165.1 cm; Wt 86.2 kg
[~2023-03-23 18:57] MED LIST changes: +CHLO25B PO; +KLOR-CON 1010 ME9 PO
[2023-03-23 19:06] VITALS: BP 126/85
[2023-03-23 19:39] LABS: BASOPHILS ABSOLUTE AUTO 0.02 K/mm3 (0.00-0.23); BASOPHILS PERCENT AUTO 0 % (0-2); EOSINOPHILS ABSOLUTE AUTO 0.01 K/mm3 (0.00-0.68); EOSINOPHILS PERCENT AUTO 0 % (0-6); Hematocrit 39.9 % (33.0-51.0); Hemoglobin 14.1 g/dL (11.5-16.0); IMMATURE GRAN ABSOLUTE AUTO 0.04 K/mm3 (0.00-0.10); IMMATURE GRAN PERCENT AUTO 1 % (0-1); LYMPHOCYTES PERCENT AUTO 11 % (21-46); MONOCYTES ABSOLUTE AUTO 0.26 K/mm3 (0.16-1.47); MONOCYTES PERCENT AUTO 4 % (4-13); Mean Corpuscular HGB 31.6 pg (26.0-34.0); Mean Corpuscular HGB Conc 35.3 g/dL (31.5-36.5); Mean Corpuscular Volume 90 fL (80-100); Mean Platelet Volume 10.1 fL (9.1-12.4); NEUTROPHILS ABSOLUTE AUTO 6.03 K/mm3 (1.96-9.15); NEUTROPHILS PERCENT AUTO 84 % (41-73); Platelet Count 267 K/mm3 (150-400); RDW Coefficient Variation 13.3 % (11.7-14.2); RDW Standard Deviation 43.6 fL (35.1-46.3); Red Blood Cell Count 4.46 M/mm3 (3.80-5.20); White Blood Cell Count 7.16 K/mm3 (4.00-11.30)
[2023-03-23 20:11] LABS: Albumin, Blood 2.9 g/dL (3.4-5.0); Albumin/Globulin Ratio 0.8 (0.8-1.8); Bilirubin, Total 0.3 mg/dL (0.1-1.0); Bun/Creatinine Ratio 16.9 (12.0-20.0); Calcium, Blood 8.6 mg/dL (8.5-10.1); Creatinine, Blood 0.95 mg/dL (0.40-1.00); Globulin, Blood 3.6 g/dL (2.2-4.0); Potassium, Blood 2.9 mmol/L (3.5-5.5); Total Protein, Blood 6.5 g/dL (6.4-8.2)
[2023-03-23] MEDS ORDERED: METOPROLOL SUCC25 MG PO (21:17)
[2023-03-23] MEDS ORDERED: FUROSEMIDE40 MG (21:17)
[2023-03-23] MEDS ORDERED: KLOR-CON 1010 ME9 PO (21:17)
[2023-03-23] MEDS ORDERED: Prednisone10 MG PO (21:18)
[2023-03-23] MEDS ORDERED: ESCI20 PO (21:18)
[2023-03-23] MEDS ORDERED: TROSPIUM CHLORI60 MG PO (21:18)
[2023-03-23] MEDS ORDERED: PREG150 PO (21:18)
[2023-03-23] MEDS ORDERED: HYDROCODONE-AC1 EA19 PO (21:18)
[2023-03-23] MEDS ORDERED: POTCHL20ER PO (21:19)
== END 2023-03-23 21:47 | disposition home or self-care (01) ==
LOC: ER 18:57
PROVIDERS: Student in an Organized Health Care Education/Training Program
DX: R60.0 Localized edema (principal); S20.219A Contusion of unspecified front wall of thorax, initial encounter; I10 Essential (primary) hypertension; E87.6 Hypokalemia; F17.210 Nicotine dependence, cigarettes, uncomplicated; X58.XXXA Exposure to other specified factors, initial encounter; Z79.82 Long term (current) use of aspirin; Z79.52 Long term (current) use of systemic steroids; Z79.899 Other long term (current) drug therapy
CPT/HCPCS: 71046; 80053; 83880; 84484; 85025; 93005; 93010; 99284-25; A9270

== ENCOUNTER → 2023-04-06 | Outpatient (CLI) | payer OTHER ==
[~2023-04-06] MED LIST changes: +ESCI20 PO; +FUROSEMIDE40 MG; +HYDROCODONE-AC1 EA19 PO; +METOPROLOL SUCC25 MG PO; +PREG150 PO; +TROSPIUM CHLORI60 MG PO
== END ==
LOC: LAB 15:51 → LAB SHORT 15:51
DX: D48.5 Neoplasm of uncertain behavior of skin (principal)
CPT/HCPCS: 88305

== ENCOUNTER → 2023-05-04 | Outpatient (CLI) | payer OTHER ==
[2023-05-09 20:13] LABS: Adenovirus F 40/41 Not Detected (NOT DETECT); Astrovirus Not Detected (NOT DETECT); Campylobacter Sp Not Detected (NOT DETECT); Cryptosporidium Not Detected (NOT DETECT); Cyclospora Cayetanensis Not Detected (NOT DETECT); E. Coli O157 Not Detected (NOT DETECT); Entamoeba Histolytica Not Detected (NOT DETECT); Enteroaggregative E. coli-EAEC Not Detected (NOT DETECT); Enteropathogenic E. coli-EPEC Not Detected (NOT DETECT); Enterotoxigenic E. coli-ETEC Not Detected (NOT DETECT); Giardia Lamblia Not Detected (NOT DETECT); Norovirus GI/GII Not Detected (NOT DETECT); Plesiomonas Shigelloides Not Detected (NOT DETECT); Rotavirus A Not Detected (NOT DETECT); Salmonella Sp Not Detected (NOT DETECT); Sapovirus Not Detected (NOT DETECT); Shiga Toxin-prod E. coli-STEC Not Detected (NOT DETECT); Shigella/Enteroin E. coli-EIEC Not Detected (NOT DETECT); Vibrio Cholerae Not Detected (NOT DETECT); Vibrio Sp Not Detected (NOT DETECT); Yersinia Enterocolitica Not Detected (NOT DETECT)
[2023-05-14 02:12] LABS: CALPROTECTIN,FECAL 187 ug/g (<=49)
[2023-05-14 02:15] LABS: PANCREATIC ELASTASE,FECAL 473 ug/g (>=100)
== END ==
LOC: LAB SHORT 13:00 → LAB 13:00
PROVIDERS: Family Medicine
DX: R19.7 Diarrhea, unspecified (principal)
CPT/HCPCS: 82653; 83993; 87507

== ENCOUNTER 2023-05-06 12:56 | Emergency (ER) | payer OTHER ==
[~2023-05-06] VITALS: Ht 165.1 cm; Wt 74.8 kg
[2023-05-06 14:18] LABS: BASOPHILS ABSOLUTE AUTO 0.03 K/mm3 (0.00-0.23); BASOPHILS PERCENT AUTO 0 % (0-2); EOSINOPHILS ABSOLUTE AUTO 0.05 K/mm3 (0.00-0.68); EOSINOPHILS PERCENT AUTO 1 % (0-6); Hematocrit 43.5 % (33.0-51.0); Hemoglobin 14.9 g/dL (11.5-16.0); IMMATURE GRAN ABSOLUTE AUTO 0.05 K/mm3 (0.00-0.10); IMMATURE GRAN PERCENT AUTO 1 % (0-1); LYMPHOCYTES ABSOLUTE AUTO 1.87 K/mm3 (0.84-5.20); LYMPHOCYTES PERCENT AUTO 23 % (21-46); MONOCYTES ABSOLUTE AUTO 0.72 K/mm3 (0.16-1.47); MONOCYTES PERCENT AUTO 9 % (4-13); Mean Corpuscular HGB 30.6 pg (26.0-34.0); Mean Corpuscular HGB Conc 34.3 g/dL (31.5-36.5); Mean Corpuscular Volume 89 fL (80-100); Mean Platelet Volume 10.9 fL (9.1-12.4); NEUTROPHILS ABSOLUTE AUTO 5.49 K/mm3 (1.96-9.15); NEUTROPHILS PERCENT AUTO 67 % (41-73); Platelet Count 328 K/mm3 (150-400); RDW Coefficient Variation 13.3 % (11.7-14.2); RDW Standard Deviation 43.6 fL (35.1-46.3); Red Blood Cell Count 4.87 M/mm3 (3.80-5.20); White Blood Cell Count 8.21 K/mm3 (4.00-11.30)
[2023-05-06 14:36] LABS: Albumin, Blood 3.2 g/dL (3.4-5.0); Albumin/Globulin Ratio 0.8 (0.8-1.8); Bilirubin, Total 0.5 mg/dL (0.1-1.0); Bun/Creatinine Ratio 25.4 (12.0-20.0); Calcium, Blood 9.3 mg/dL (8.5-10.1); Creatinine, Blood 1.18 mg/dL (0.40-1.00); Globulin, Blood 3.9 g/dL (2.2-4.0); Potassium, Blood 2.5 mmol/L (3.5-5.5); Total Protein, Blood 7.1 g/dL (6.4-8.2)
[2023-05-06 21:11] VITALS: BP 118/70
== END 2023-05-06 21:16 | disposition home or self-care (01) ==
LOC: ER 12:56
PROVIDERS: Student in an Organized Health Care Education/Training Program
DX: E87.6 Hypokalemia (principal); E83.42 Hypomagnesemia; Z79.899 Other long term (current) drug therapy; I10 Essential (primary) hypertension; G62.9 Polyneuropathy, unspecified
CPT/HCPCS: 80053; 83735; 85025; 93005; 93010; 96365; 96366; 96368; 99283-25; A9270; J3475; J3480; J7030

== ENCOUNTER 2023-06-12 22:28 | Inpatient (IN) | payer OTHER ==
[~2023-06-12] VITALS: Ht 165.1 cm; Wt 82.6 kg
[~2023-06-12 22:28] MED LIST changes: -FUROSEMIDE40 MG; +FUROSEMIDE40 MG PO
[2023-06-12 23:00] LABS: BASOPHILS ABSOLUTE AUTO 0.03 K/mm3 (0.00-0.23); BASOPHILS PERCENT AUTO 0 % (0-2); EOSINOPHILS ABSOLUTE AUTO 0.01 K/mm3 (0.00-0.68); EOSINOPHILS PERCENT AUTO 0 % (0-6); Hematocrit 42.8 % (33.0-51.0); Hemoglobin 14.8 g/dL (11.5-16.0); IMMATURE GRAN ABSOLUTE AUTO 0.16 K/mm3 (0.00-0.10); IMMATURE GRAN PERCENT AUTO 1 % (0-1); LYMPHOCYTES ABSOLUTE AUTO 0.79 K/mm3 (0.84-5.20); LYMPHOCYTES PERCENT AUTO 7 % (21-46); MONOCYTES PERCENT AUTO 6 % (4-13); Mean Corpuscular HGB 31.1 pg (26.0-34.0); Mean Corpuscular HGB Conc 34.6 g/dL (31.5-36.5); Mean Corpuscular Volume 90 fL (80-100); Mean Platelet Volume 11.2 fL (9.1-12.4); NEUTROPHILS ABSOLUTE AUTO 9.68 K/mm3 (1.96-9.15); NEUTROPHILS PERCENT AUTO 85 % (41-73); Platelet Count 187 K/mm3 (150-400); RDW Coefficient Variation 13.2 % (11.7-14.2); RDW Standard Deviation 44.1 fL (35.1-46.3); Red Blood Cell Count 4.76 M/mm3 (3.80-5.20); White Blood Cell Count 11.37 K/mm3 (4.00-11.30)
[2023-06-12 23:17] LABS: Albumin/Globulin Ratio 0.9 (0.8-1.8); Bilirubin, Total 0.7 mg/dL (0.1-1.0); Bun/Creatinine Ratio 18.9 (12.0-20.0); Calcium, Blood 8.3 mg/dL (8.5-10.1); Creatinine, Blood 1.32 mg/dL (0.40-1.00); Globulin, Blood 3.5 g/dL (2.2-4.0); Potassium, Blood 2.7 mmol/L (3.5-5.5); Total Protein, Blood 6.5 g/dL (6.4-8.2)
[2023-06-12 23:48] LABS: Source, Urine Suprapubic Cath
[2023-06-12] MEDS ORDERED: Lactated Ringer's 1,000 ML IV ONE (23:50)
[2023-06-12 23:51] LABS: Bilirubin, Urine Neg (Neg); Blood, Urine 2+ (Neg); Glucose Qualitative, Urine Neg (Neg); Ketones, Urine Neg (Neg); Leukocyte Esterase, Urine 3+ (Neg); Nitrite, Urine Neg (Neg); Protein, Urine Neg (Neg); Urobilinogen, Urine NORM (Normal)
[2023-06-12] MEDS ORDERED: Ondansetron HCl 2 MG / ML 2ML Vial IV ONE (23:55)
[2023-06-12] MEDS ORDERED: Cefepime HCl 2,000 MG in NS 100 ML IV ONE (23:55)
[2023-06-12] MEDS ORDERED: Dexamethasone Sod Phos 10 MG/ML 1ML VIAL IV ONE (23:55)
[2023-06-12] MEDS ORDERED: Ipratropium/Albuterol SulF 2.5-0.5MG/3 ML Amp INH ONE (23:55)
[2023-06-12] MEDS ORDERED: Acetaminophen 500 MG Tab PO ONE (23:55)
[2023-06-12 23:57] LABS: Appearance, Urine Hazy (Clear); Color, Urine Yellow (P-Yellow)
[2023-06-12 23:58] LABS: Amorphous Light (0-Heavy); Bacteria Many /hpf; Red Blood Cells, Urine 0-2 /hpf (0-2); Squamous Epithelial Cells Not Seen /hpf (Few); White Blood Cells, Urine 25-50 /hpf (0-5)
[2023-06-13 00:22] LABS: Influenza A, PCR NEGATIVE (NEGATIVE); Influenza B, PCR NEGATIVE (NEGATIVE); Resp Syncytial Virus, PCR NEGATIVE (NEGATIVE); SARS-Cov-2 (COVID-19) PCR, MMC NEGATIVE (NEGATIVE)
[2023-06-13 00:42] LABS: Base Excess Venous 8.4 mmol/L; Bicarbonate Venous 30.2 mmol/L (24.0-30.0); PCO2 Venous 50.5 mmHg (38-42); pH Blood Venous 7.42 (7.34-7.37)
[2023-06-13 00:55] LABS: Magnesium, Blood 1.4 mg/dL (1.6-2.4)
[2023-06-13] MEDS ORDERED: Magnesium Sulf 2 GM/Water 50ML 50 ML IV ONE (02:00)
[2023-06-13] MEDS ORDERED: Acetaminophen 325 MG TABLET PO PRN (02:55)
[2023-06-13] MEDS ORDERED: Potassium Chloride 10 Meq Tablet SA PO ONE (03:00)
[2023-06-13] MEDS ORDERED: FLU VACC QS2023-24(6MOS UP)/PF 60 MCG/0.5 ML SYRINGE IM ONE (03:00)
[2023-06-13] MEDS ORDERED: NS KCl 20mEq 1,000 ML IV SCH (03:00)
[2023-06-13] MEDS ORDERED: Ipratropium/Albuterol SulF 2.5-0.5MG/3 ML Amp INH PRN (03:10)
[2023-06-13] MEDS ORDERED: Albuterol 2.5 MG/3 ML VIAL INH PRN (03:30)
[2023-06-13 04:50] VITALS: BP 113/74
[2023-06-13] MEDS ORDERED: SPIR25 PO (05:04)
[2023-06-13 05:22] LABS: BASOPHILS ABSOLUTE AUTO 0.01 K/mm3 (0.00-0.23); BASOPHILS PERCENT AUTO 0 % (0-2); EOSINOPHILS PERCENT AUTO 0 % (0-6); Hematocrit 40.9 % (33.0-51.0); Hemoglobin 14.3 g/dL (11.5-16.0); IMMATURE GRAN PERCENT AUTO 1 % (0-1); LYMPHOCYTES ABSOLUTE AUTO 0.51 K/mm3 (0.84-5.20); LYMPHOCYTES PERCENT AUTO 5 % (21-46); MONOCYTES ABSOLUTE AUTO 0.25 K/mm3 (0.16-1.47); MONOCYTES PERCENT AUTO 3 % (4-13); Mean Corpuscular HGB 31.2 pg (26.0-34.0); Mean Corpuscular Volume 89 fL (80-100); Mean Platelet Volume 10.6 fL (9.1-12.4); NEUTROPHILS ABSOLUTE AUTO 9.21 K/mm3 (1.96-9.15); NEUTROPHILS PERCENT AUTO 91 % (41-73); Platelet Count 170 K/mm3 (150-400); RDW Coefficient Variation 13.2 % (11.7-14.2); RDW Standard Deviation 42.6 fL (35.1-46.3); Red Blood Cell Count 4.59 M/mm3 (3.80-5.20); White Blood Cell Count 10.08 K/mm3 (4.00-11.30)
[2023-06-13 05:44] LABS: Albumin, Blood 2.7 g/dL (3.4-5.0); Albumin/Globulin Ratio 0.8 (0.8-1.8); Bilirubin, Total 0.8 mg/dL (0.1-1.0); Calcium, Blood 8.4 mg/dL (8.5-10.1); Creatinine, Blood 1.11 mg/dL (0.40-1.00); Globulin, Blood 3.4 g/dL (2.2-4.0); Potassium, Blood 2.9 mmol/L (3.5-5.5); Total Protein, Blood 6.1 g/dL (6.4-8.2)
[2023-06-13] MEDS ORDERED: Azithromycin 500 MG in NS 250 ML IV SCH (06:15)
--- NOTE | 2023-06-13 07:26 | NUR ---
PT ARRIVED TO U @ 0450. PT WAS INCONTINENT OF STOOL, REDNESS NOTED TO COCCYX AND UNDER BREAST AND PANNUS. VSS, ON 2L NC. ALERT AND ORIENTED X4, CALM AND COOPERATIVE WITH CARE. ORIENTED TO CALL LIGHT AND ROOM. UPDATED SON GRACIELA ON PLAN OF CARE VIA PHONE. ADMISSION HX AND MED REQ COMPLETED. RESPIRATORY PCR SENT THIS AM. REPORT GIVEN TO FRANCISCO J Valdez RN.
[2023-06-13] MEDS ORDERED: Cefepime HCl 2,000 MG in NS 100 ML IV SCH (08:00)
[2023-06-13 08:13] LABS: Adenovirus Not Detected (NOT DETECT); Coronavirus 229E Not Detected (NOT DETECT); Coronavirus HKU1 Not Detected (NOT DETECT); Coronavirus NL63 Not Detected (NOT DETECT)
[2023-06-13 08:14] LABS: Bordetella pertussis Not Detected (NOT DETECT); Chlamydophila pneumoniae Not Detected (NOT DETECT); Coronavirus OC43 Not Detected (NOT DETECT); Human Metapneumovirus Not Detected (NOT DETECT); Human Rhinovirus/Enterovirus Not Detected (NOT DETECT); Influenza A/2009-H1 Not Detected (NOT DETECT); Influenza A/H1 Not Detected (NOT DETECT); Influenza A/H3 Not Detected (NOT DETECT); Influenza B Not Detected (NOT DETECT); Mycoplasma pneumoniae Not Detected (NOT DETECT); Parainfluenza Virus 1 Not Detected (NOT DETECT); Parainfluenza Virus 2 Not Detected (NOT DETECT); Parainfluenza Virus 3 Not Detected (NOT DETECT); Parainfluenza Virus 4 Not Detected (NOT DETECT); Respiratory Syncytial Virus Not Detected (NOT DETECT); SARS-Cov-2 (COVID-19), BioFire Not Detected (NOT DETECT)
[2023-06-13 08:59] VITALS: BP 119/83
[2023-06-13] MEDS ORDERED: Enoxaparin 40 MG/0.4 ML SYR SC SCH (09:00)
[2023-06-13] MEDS ORDERED: Lactobacil 2-S.Thermo-Bifido 1 1 Cap PO SCH (09:00)
[2023-06-13 15:24] VITALS: BP 139/88
[2023-06-13] MEDS ORDERED: Trospium Chloride 20 MG Tab PO SCH (17:00)
[2023-06-13] MEDS ORDERED: Pregabalin 75 MG Cap PO SCH ×2 (17:10→21:00)
--- NOTE | 2023-06-13 18:31 | NUR ---
EOS: AILYN HAD NO ACUTE EVENTS THROUGHT THE DAY, ALERT AND ORIENTED X 4 CALLS APPRIPRITATELY DENIES CHEST PAIN PRESSURE OR SOB. PATIENT IS NOW WEARING 1L OF NC FOR WOB SHE HAS BEEN AMBULATING 1-2P GBB PIVOT TO BS. COULD BENEFIT FROM PT/OT. DENIES CHEST PAIN PRESSURE OR SOB. 1L OF NS +20meqKCL. APPETITE RETURNING, VERY VERY TINY BM. COULD BENEFIT FORM STOOL SOFTENER WILL INFORM CONCERNS TO NIGHT RN. PATIENT COOPERATIVE AND PAIN IS IMPROVING WITH LYRICA ON BOARD.
[2023-06-13 19:49] VITALS: BP 131/88
[2023-06-14 04:03] LABS: BASOPHILS ABSOLUTE AUTO 0.03 K/mm3 (0.00-0.23); BASOPHILS PERCENT AUTO 0 % (0-2); EOSINOPHILS ABSOLUTE AUTO 0.12 K/mm3 (0.00-0.68); EOSINOPHILS PERCENT AUTO 2 % (0-6); Hematocrit 35.2 % (33.0-51.0); IMMATURE GRAN ABSOLUTE AUTO 0.06 K/mm3 (0.00-0.10); IMMATURE GRAN PERCENT AUTO 1 % (0-1); LYMPHOCYTES ABSOLUTE AUTO 0.97 K/mm3 (0.84-5.20); LYMPHOCYTES PERCENT AUTO 14 % (21-46); MONOCYTES ABSOLUTE AUTO 0.55 K/mm3 (0.16-1.47); MONOCYTES PERCENT AUTO 8 % (4-13); Mean Corpuscular HGB 30.7 pg (26.0-34.0); Mean Corpuscular HGB Conc 34.1 g/dL (31.5-36.5); Mean Corpuscular Volume 90 fL (80-100); Mean Platelet Volume 11.4 fL (9.1-12.4); NEUTROPHILS ABSOLUTE AUTO 5.45 K/mm3 (1.96-9.15); NEUTROPHILS PERCENT AUTO 76 % (41-73); Platelet Count 156 K/mm3 (150-400); RDW Coefficient Variation 13.4 % (11.7-14.2); RDW Standard Deviation 44.2 fL (35.1-46.3); Red Blood Cell Count 3.91 M/mm3 (3.80-5.20); White Blood Cell Count 7.18 K/mm3 (4.00-11.30)
[2023-06-14 04:28] LABS: Bun/Creatinine Ratio 20.4 (12.0-20.0); Calcium, Blood 8.3 mg/dL (8.5-10.1); Creatinine, Blood 0.98 mg/dL (0.40-1.00)
[2023-06-14 05:17] VITALS: BP 120/75
[2023-06-14] MEDS ORDERED: Potassium Chloride 20 MEQ TabCR PO ONE ×2 (05:35→08:40)
[2023-06-14] MEDS ORDERED: Ondansetron HCl 2 MG / ML 2ML Vial IV ONE (05:35)
--- NOTE | 2023-06-14 06:37 | NUR ---
SHIFT SUMMARY PT IS ALERT AND ORIENTED X 4, COOPERATIVE WITH CARE AND ABLE TO MAKE NEEDS KNOWN. ORLIN. PT WAS ON 1L NC AT BEGINNING OF SHIFT AND IS NOW ON RA PER HER REQUEST. SHE IS MAINTAINING O2 SATURATION ABOVE 90% AND DENIES SOB. SHE SAID SHE DOES NOT WEAR OXYGEN AT HOME. PT HAS SUPRAPUBIC CATHETER AND IT IS DRAINING DARK YELLOW URINE WITH GRAVITY. PT HAS STAGE 2 PRESSURE SORE ON HER COCCYX, MEPILEX IN PLACE, Q2 TURNS. PT HAS HX OF NEUROPATHY AND BACK PAIN. PT WOKE UP AROUND 0530 COMPLAINING OF 10/10 BACK PAIN. MD WAS NOTIFIED AND HE OK'D GIVING PT HER LYRICA EARLY. LYRICA AND TYLENOL GIVEN PER EMAR. PT ALSO COMPLAINED OF NAUSEA, MD NOTIFIED & ORDERS PLACED, PT MEDICATED PER EMAR. PT'S POTASSIUM THIS MORNING WAS 3.0, MD NOTIFIED, AND PT MEDICATED PER EMAR. PT CURRENTLY WATCHING BED IN TV AND CALL LIGHT WITHIN REACH.
[2023-06-14] MEDS ORDERED: Citalopram Hydrobromide 20 MG Tab PO SCH (09:00)
[2023-06-14] MEDS ORDERED: Metoprolol Succinate 25 MG TABCR PO SCH (09:00)
[2023-06-14] MEDS ORDERED: PredniSONE 10 MG Tab PO SCH (09:00)
[2023-06-14 09:03] VITALS: BP 119/83
[2023-06-14 16:46] VITALS: BP 136/89
--- NOTE | 2023-06-14 18:05 | NUR ---
ASSUMED CARE OF PT AT 0700 THIS AM. NO ACUTE CHANGES, PT IS ON RA SPO2 90-94%. PT WORKED WITH PT/OT, SPO2 NOTED TO DROP TO 85% ON RA WHILE AMBULATING TO THE RESTROOM WITH PT. QUICKLY RECOVERED AT REST. SUPRA PUBIC CATHETER REPLACED BY THIS RN IT HAD NOT BEEN DONE IN THE ER BEFORE ARRIVAL TO PCU. SEE DOCUMENTED VS AND ASSESSMENT. VS STABLE T/O THE DAY. PLAN TO DC TO SNF 06/15/23. PT IS ABLE TO USE CALL LIGHT FOR NEEDS, CALL LIGHT IN REACH, BED LOCKED AND IN LOWEST POSITION. WILL CONTINUE TO MONITOR AND GIVE REPORT TO NOC SHIFT RN.
[2023-06-14 19:59] VITALS: BP 141/93
--- NOTE | 2023-06-14 21:33 | NUR ---
ASSUME CARE PT RESTING COMFORTABLY IN BED. PT C/O CHRONIC PAIN R/T AUTOIMMUNE DISORDER AND STATES BASELINE PAIN LEVELS ARE TYPICALLY 8/10. PT STATED THAT TYLENOL HELPS RELIEVE SOME OF THE PAIN. SEE EMAR FOR PRN TYLENOL. PT PLEASANT AND IN POSITIVE MOOD. PT REMAINS ON RA, WITH O2 SATS >90%. PT SUPRAPUBIC CATHETER REMAINS IN PLACE AND DRAINING APPROPRIATELY.
[2023-06-15 04:10] VITALS: BP 110/65
--- NOTE | 2023-06-15 06:11 | NUR ---
SHIFT SUMMARY PT RESTED MORE COMFORTABLY OVERNIGHT AFTER INITIAL C/O ABDOMEN "FEELING FULL." PT GIVEN PRUNE JUICE FOR ASSISTANCE WITH BM UNTIL BOWEL REGIMEN CAN BE STARTED. SEE NEW ORDERS FOR COLACE. PT TURNED WHEN AWAKE/REQUESTED OVERNIGHT FOR COMFORT. PT SUPRAPUBIC CARRENO REMAINS IN PLACE, IV REMAINS IN PLACE, ANTIBIOTIC RUNNING AT THIS TIME.
[2023-06-15 07:24] LABS: BASOPHILS ABSOLUTE AUTO 0.05 K/mm3 (0.00-0.23); BASOPHILS PERCENT AUTO 1 % (0-2); EOSINOPHILS ABSOLUTE AUTO 0.18 K/mm3 (0.00-0.68); EOSINOPHILS PERCENT AUTO 2 % (0-6); Hematocrit 37.6 % (33.0-51.0); Hemoglobin 12.8 g/dL (11.5-16.0); IMMATURE GRAN ABSOLUTE AUTO 0.06 K/mm3 (0.00-0.10); IMMATURE GRAN PERCENT AUTO 1 % (0-1); LYMPHOCYTES ABSOLUTE AUTO 1.43 K/mm3 (0.84-5.20); LYMPHOCYTES PERCENT AUTO 18 % (21-46); MONOCYTES ABSOLUTE AUTO 0.55 K/mm3 (0.16-1.47); MONOCYTES PERCENT AUTO 7 % (4-13); Mean Corpuscular HGB 31.4 pg (26.0-34.0); Mean Corpuscular Volume 92 fL (80-100); Mean Platelet Volume 11.1 fL (9.1-12.4); NEUTROPHILS ABSOLUTE AUTO 5.76 K/mm3 (1.96-9.15); NEUTROPHILS PERCENT AUTO 72 % (41-73); Platelet Count 165 K/mm3 (150-400); RDW Coefficient Variation 13.6 % (11.7-14.2); RDW Standard Deviation 46.5 fL (35.1-46.3); Red Blood Cell Count 4.07 M/mm3 (3.80-5.20); White Blood Cell Count 8.03 K/mm3 (4.00-11.30)
[2023-06-15 07:40] LABS: Bun/Creatinine Ratio 17.3 (12.0-20.0); Calcium, Blood 8.6 mg/dL (8.5-10.1); Creatinine, Blood 1.04 mg/dL (0.40-1.00); Potassium, Blood 3.7 mmol/L (3.5-5.5)
[2023-06-15 08:31] VITALS: BP 106/72
[2023-06-15] MEDS ORDERED: Docusate Sodium 100 MG Cap PO SCH (09:00)
[2023-06-15 12:21] VITALS: BP 104/67
[2023-06-15] MEDS ORDERED: VISBIOME 112.51 EACH PO (14:28)
[2023-06-15] MEDS ORDERED: AMOCLA875 PO (14:28)
[2023-06-15] MEDS ORDERED: Acetaminophen650 M1 PO (14:28)
[2023-06-15] MEDS ORDERED: ALBU90OI6 INH (14:29)
--- NOTE | 2023-06-15 15:32 | NUR ---
REPORT GIVEN TO REHAB NURSE AT 1520.TRANSPORT ARRIVED AT 1527 AND PT DISCHARGED AT 1530. PT LEFT VIA WHEELCHAIR AND ON RA. PT ABLE TO TRANSFER SELF TO AND FROM WHEELCHAIR ON HER OWN, VANESSA HEATH.
== END 2023-06-15 15:30 | DRG 871 ==
LOC: ER 22:28 → PCU 06-13 03:40
PROVIDERS: Emergency Medicine; Family Medicine; Internal Medicine; ADMIT Internal Medicine
DX: A41.9 Sepsis, unspecified organism (principal); J18.9 Pneumonia, unspecified organism; J96.01 Acute respiratory failure with hypoxia; J44.0 Chronic obstructive pulmonary disease with (acute) lower respiratory infection; N39.0 Urinary tract infection, site not specified; N17.9 Acute kidney failure, unspecified; I12.9 Hypertensive chronic kidney disease with stage 1 through stage 4 chronic kidney disease, or unspecified chronic kidney disease; N18.30 Chronic kidney disease, stage 3 unspecified; M35.3 Polymyalgia rheumatica; G89.29 Other chronic pain; F41.8 Other specified anxiety disorders; N31.9 Neuromuscular dysfunction of bladder, unspecified; Z96.0 Presence of urogenital implants; E66.9 Obesity, unspecified; I25.10 Atherosclerotic heart disease of native coronary artery without angina pectoris; R29.6 Repeated falls; G62.9 Polyneuropathy, unspecified; F17.210 Nicotine dependence, cigarettes, uncomplicated; Z68.31 Body mass index [BMI] 31.0-31.9, adult; Z11.52 Encounter for screening for COVID-19; Z28.21 Immunization not carried out because of patient refusal
CPT/HCPCS: 0202U; 0241U; 36415; 51702; 70450; 71045; 80048; 80053; 81001; 82803; 83605; 83735; 84132; 84145; 85025; 87040; 87086; 93005; 93010; 94640; 94664; 94762; 96361; 96365; 96367; 96375; 97110; 97162; 97165; 97530; 97535; 99285-25; A9270; J0456; J0692; J1100; J1650; J2405; J3475; J3480; J7050; J7120; J7512

== ENCOUNTER → 2023-08-29 | Outpatient (CLI) | payer OTHER ==
[~2023-08-29] MED LIST changes: +ALBU90OI6 INH; +AMOCLA875 PO; +Acetaminophen650 M1 PO; +BISA10S PR; +DOCUZEN 8.6-501 EACH PO; +ELIQUIS5 M2 PO; +FAMO20 PO; +MIRALAX17 GM PO; +ONDA4ODT MM; +SERT50 PO; +SPIR25 PO; +VISBIOME 112.51 EACH PO
== END | disposition home or self-care (01) ==
LOC: LAB 16:43 → LAB SHORT 16:43
DX: N39.0 Urinary tract infection, site not specified (principal); T83.511S Infection and inflammatory reaction due to indwelling urethral catheter, sequela
CPT/HCPCS: 87077; 87086; 87186

== ENCOUNTER 2023-10-18 20:02 | Emergency (ER) | payer OTHER ==
[~2023-10-18] VITALS: Ht 165.1 cm; Wt 77.1 kg
[~2023-10-18 20:02] MED LIST changes: +ELIQUIS5 M9 PO; +FERREX 28 TABL1 EACH PO; +HYDR1TAB94 PO; +NYSTATIN100000 U13 MT; +PREG75 PO; +SINEMET 25-1001 EAC1 PO
[2023-10-18 20:56] LABS: BASOPHILS ABSOLUTE AUTO 0.05 K/mm3 (0.00-0.23); BASOPHILS PERCENT AUTO 1 % (0-2); EOSINOPHILS ABSOLUTE AUTO 0.24 K/mm3 (0.00-0.68); EOSINOPHILS PERCENT AUTO 4 % (0-6); Hematocrit 41.8 % (33.0-51.0); Hemoglobin 14.5 g/dL (11.5-16.0); IMMATURE GRAN ABSOLUTE AUTO 0.23 K/mm3 (0.00-0.10); IMMATURE GRAN PERCENT AUTO 3 % (0-1); LYMPHOCYTES ABSOLUTE AUTO 1.53 K/mm3 (0.84-5.20); LYMPHOCYTES PERCENT AUTO 22 % (21-46); MONOCYTES ABSOLUTE AUTO 0.73 K/mm3 (0.16-1.47); MONOCYTES PERCENT AUTO 11 % (4-13); Mean Corpuscular HGB 29.6 pg (26.0-34.0); Mean Corpuscular HGB Conc 34.7 g/dL (31.5-36.5); Mean Corpuscular Volume 85 fL (80-100); NEUTROPHILS ABSOLUTE AUTO 4.14 K/mm3 (1.96-9.15); NEUTROPHILS PERCENT AUTO 60 % (41-73); Platelet Count 414 K/mm3 (150-400); RDW Coefficient Variation 15.9 % (11.7-14.2); RDW Standard Deviation 49.2 fL (35.1-46.3); White Blood Cell Count 6.92 K/mm3 (4.00-11.30)
[2023-10-18 21:18] LABS: Albumin/Globulin Ratio 0.8 (0.8-1.8); Bilirubin, Total 0.5 mg/dL (0.1-1.0); Bun/Creatinine Ratio 27.5 (12.0-20.0); Calcium, Blood 8.9 mg/dL (8.5-10.1); Creatinine, Blood 1.38 mg/dL (0.40-1.00); Globulin, Blood 3.9 g/dL (2.2-4.0); Potassium, Blood 2.2 mmol/L (3.5-5.5); Total Protein, Blood 6.9 g/dL (6.4-8.2)
[2023-10-18] MEDS ORDERED: Potassium Chloride 20 MEQ TabCR PO ONE (21:25)
[2023-10-18] MEDS ORDERED: Potassium Chl 20MEQ/Water100ML 100 ML IV ONE (21:25)
[2023-10-18] MEDS ORDERED: NS 1,000 ML IV ONE (22:15)
[2023-10-19 00:15] VITALS: BP 103/75
== END 2023-10-19 00:31 | disposition home or self-care (01) ==
LOC: ER 20:02
PROVIDERS: Emergency Medicine
DX: K59.00 Constipation, unspecified (principal); E87.6 Hypokalemia; I12.9 Hypertensive chronic kidney disease with stage 1 through stage 4 chronic kidney disease, or unspecified chronic kidney disease; N18.30 Chronic kidney disease, stage 3 unspecified; J44.9 Chronic obstructive pulmonary disease, unspecified; E66.9 Obesity, unspecified; F17.210 Nicotine dependence, cigarettes, uncomplicated; Z79.899 Other long term (current) drug therapy; Z79.52 Long term (current) use of systemic steroids
CPT/HCPCS: 74177; 80053; 83690; 85025; 93005; 93010; 96365-59; 96366; 99284-25; A9270; J3480; J7030; Q9967

== ENCOUNTER 2024-04-29 11:59 | Inpatient (IN) | payer OTHER ==
[~2024-04-29] VITALS: Ht 167.6 cm; Wt 72.9 kg
[2024-04-29] MEDS ORDERED: MethylPREDNISolone Sod Succ 125 MG Vial IV ONE ×2 (15:00→23:00)
[2024-04-29] MEDS ORDERED: Ipratropium/Albuterol SulF 2.5-0.5MG/3 ML Amp INH ONE (15:00)
[2024-04-29] MEDS ORDERED: Ketorolac Tromethamine 15mg Vial IV ONE (15:05)
[2024-04-29 15:12] LABS: BASOPHILS ABSOLUTE AUTO 0.05 K/mm3 (0.00-0.23); BASOPHILS PERCENT AUTO 1 % (0-2); EOSINOPHILS ABSOLUTE AUTO 0.09 K/mm3 (0.00-0.68); EOSINOPHILS PERCENT AUTO 1 % (0-6); Hemoglobin 12.8 g/dL (11.5-16.0); IMMATURE GRAN ABSOLUTE AUTO 0.05 K/mm3 (0.00-0.10); IMMATURE GRAN PERCENT AUTO 1 % (0-1); LYMPHOCYTES ABSOLUTE AUTO 1.06 K/mm3 (0.84-5.20); LYMPHOCYTES PERCENT AUTO 10 % (21-46); MONOCYTES ABSOLUTE AUTO 0.67 K/mm3 (0.16-1.47); MONOCYTES PERCENT AUTO 6 % (4-13); Mean Corpuscular HGB 31.8 pg (26.0-34.0); Mean Corpuscular HGB Conc 33.7 g/dL (31.5-36.5); Mean Corpuscular Volume 94 fL (80-100); NEUTROPHILS ABSOLUTE AUTO 8.99 K/mm3 (1.96-9.15); NEUTROPHILS PERCENT AUTO 82 % (41-73); Platelet Count 283 K/mm3 (150-400); RDW Coefficient Variation 12.8 % (11.7-14.2); RDW Standard Deviation 44.5 fL (35.1-46.3); Red Blood Cell Count 4.03 M/mm3 (3.80-5.20); White Blood Cell Count 10.91 K/mm3 (4.00-11.30)
[2024-04-29 15:33] LABS: Albumin, Blood 2.7 g/dL (3.4-5.0); Albumin/Globulin Ratio 0.8 (0.8-1.8); Bilirubin, Total 0.3 mg/dL (0.1-1.0); Bun/Creatinine Ratio 13.2 (12.0-20.0); Calcium, Blood 8.8 mg/dL (8.5-10.1); Creatinine, Blood 1.14 mg/dL (0.40-1.00); Globulin, Blood 3.3 g/dL (2.2-4.0); Potassium, Blood 3.5 mmol/L (3.5-5.5)
[2024-04-29] MEDS ORDERED: CefTRIAXone Sodium 1,000 MG in NS 100 ML IV ONE (17:15)
[2024-04-29] MEDS ORDERED: Doxycycline Hyclate 100 MG in Dextrose 5% 250 ML IV ONE (17:15)
[2024-04-29] MEDS ORDERED: BENZ100A PO (17:16)
[2024-04-29] MEDS ORDERED: AMOCLA875 PO (17:16)
[2024-04-29] MEDS ORDERED: ACET500 PO (17:16)
[2024-04-29] MEDS ORDERED: DOXY100 PO (17:16)
[2024-04-29 17:49] LABS: CORONAVIRUS COVID-19 AG Negative (NEGATIVE); INFLUENZA A AG Negative (NEGATIVE); INFLUENZA B AG Negative (NEGATIVE)
[2024-04-29] MEDS ORDERED: FLU VACC TS2024-25(6MOS UP)/PF 45 MCG/0.5 ML SYRINGE IM ONE (19:10)
[2024-04-29] MEDS ORDERED: Azithromycin 500 MG in NS 250 ML IV SCH (20:00)
[2024-04-29] MEDS ORDERED: GuaiFENesin 600 MG TabCR PO SCH (21:00)
[2024-04-29] MEDS ORDERED: Lactobacil 2-S.Thermo-Bifido 1 1 Cap PO SCH (21:00)
[2024-04-29] MEDS ORDERED: Apixaban 5 MG Tab PO SCH (22:00)
[2024-04-29 22:35] VITALS: BP 123/72
--- NOTE | 2024-04-30 01:42 | NUR ---
ADMIT NOTE FOR 04/29/24 8024 REPORT WAS RECEIVED FROM THE ER. PT WAS BROUGHT DOWN ON THE GURNEY AND TRANSFERRED OVER TO THE HOSPITAL BED. PT ALERT ORIENTED X 4 WITH FORGETFULNESS IS ABLE TO VERBALIZE NEEDS. SHE HAS A SUPRAPUBIC CATHETER THAT WAS CHANGED IN THE ER. SHES CURRENTLY ON O2 AT 2L VIA NC SATTING AT 95%. PT IS ALERT ORIENTED AND AWAKE AND HAS NO TROUBLE WITH SWALLOWING CALLED MD AND GOT A REG DIET ORDER. REMAINS ON ROCEPHIN QDAY FOR PNEUMONIA. CALLED RT TO COME SET UP A CONTINUOUS PULSE OX. PT STATED THAT SHE IS SUPPOSED TO BE TAKING MEDS BUT HASNT HAD THE ABILITY TO GET THEM SO SHE HASNT TAKEN ANY FOR WEEKS. SHE WAS ORIENTED TO THE ROOM AND STAFF CALL LIGHT IN REACH PT SLEEPING AT THIS TIME
[2024-04-30 04:34] VITALS: BP 127/70
--- NOTE | 2024-04-30 04:49 | NUR ---
SHIFT SUMMARY PT ALERT ORIENTED X 4 WITH FORGETFULNESS SHE IS ABLE TO CALL APPROPRIATELY. SHE HAS A SUPRAPUBIC CATHETER DRAINING CLEAR YELLOW URINE. SHES REPOSITIONED Q2HR REMAINS ON ROCEPHIN AND ZITHROMAX FOR PNEUMONIA VSS ON 2L OF O2 SATTING AT 95%. NO C/O PAIN CONTINUES ON A CONTINUOUS PULSE OX SHE IS CURRENTLY ON BEDREST AND IS VERY WEAK ON HER LEGS WHICH IS HER BASELINE. RESTING IN BED AT THIS TIME WITH CALL LIGHT IN REACH
[2024-04-30 05:53] LABS: BASOPHILS PERCENT AUTO 0 % (0-2); EOSINOPHILS PERCENT AUTO 0 % (0-6); Hematocrit 37.1 % (33.0-51.0); Hemoglobin 12.6 g/dL (11.5-16.0); IMMATURE GRAN ABSOLUTE AUTO 0.04 K/mm3 (0.00-0.10); IMMATURE GRAN PERCENT AUTO 1 % (0-1); LYMPHOCYTES ABSOLUTE AUTO 0.56 K/mm3 (0.84-5.20); LYMPHOCYTES PERCENT AUTO 7 % (21-46); MONOCYTES ABSOLUTE AUTO 0.08 K/mm3 (0.16-1.47); MONOCYTES PERCENT AUTO 1 % (4-13); Mean Corpuscular HGB 31.7 pg (26.0-34.0); Mean Corpuscular Volume 94 fL (80-100); Mean Platelet Volume 10.5 fL (9.1-12.4); NEUTROPHILS ABSOLUTE AUTO 7.11 K/mm3 (1.96-9.15); NEUTROPHILS PERCENT AUTO 91 % (41-73); Platelet Count 290 K/mm3 (150-400); RDW Coefficient Variation 12.6 % (11.7-14.2); RDW Standard Deviation 43.3 fL (35.1-46.3); Red Blood Cell Count 3.97 M/mm3 (3.80-5.20); White Blood Cell Count 7.79 K/mm3 (4.00-11.30)
[2024-04-30 06:19] LABS: Albumin, Blood 2.5 g/dL (3.4-5.0); Albumin/Globulin Ratio 0.8 (0.8-1.8); Bilirubin, Total 0.2 mg/dL (0.1-1.0); Creatinine, Blood 1.22 mg/dL (0.40-1.00); Globulin, Blood 3.3 g/dL (2.2-4.0); Magnesium, Blood 2.3 mg/dL (1.6-2.4); Potassium, Blood 3.4 mmol/L (3.5-5.5); Total Protein, Blood 5.8 g/dL (6.4-8.2)
[2024-04-30 07:03] VITALS: BP 135/83
[2024-04-30] MEDS ORDERED: Enoxaparin 40 MG/0.4 ML SYR SC SCH (09:00)
[2024-04-30] MEDS ORDERED: PredniSONE 20 MG Tab PO SCH (09:00)
[2024-04-30 15:45] VITALS: BP 124/82
[2024-04-30] MEDS ORDERED: CefTRIAXone Sodium 1,000 MG in NS 100 ML IV SCH (18:00)
--- NOTE | 2024-04-30 18:35 | NUR ---
SHIFT SUMMARY PT IS A/OX3-4, FORGETFUL AT TIMES AND CONFUSION TO DATE. PT IS ON 2L NC, RA AT BASELINE. CONTINUOUS PULSE OX IN PLACE. SUPRAPUBIC CATHETER PATENT AND DRAINING CLEAR, YELLOW URINE TO GRAVITY. RECIEVING IV ANTIBIOTICS. PT CALLS APPROPRAITELY USING THE CALL LIGHT.
[2024-04-30 19:31] VITALS: BP 126/81
[2024-04-30] MEDS ORDERED: NS 250 ML IV PRN (20:00)
[2024-04-30] MEDS ORDERED: Pregabalin 75 MG Cap PO SCH (21:00)
[2024-04-30] MEDS ORDERED: Levodopa/Carbidopa 100 / 25 MG Tab PO SCH (21:00)
[2024-04-30] MEDS ORDERED: Simethicone 80 MG Chew PO PRN (21:45)
[2024-05-01] MEDS ORDERED: FentaNYL Citrate 50 MCG/ML 2 ML Injection IV ONE (00:15)
[2024-05-01] MEDS ORDERED: Mag Hydrox/Al Hydrox/Simeth 18 ML,Lidocaine 2% Viscous Soln 9 ML,Atropine/Scopalam/Hyos... PO ONE (00:20)
[2024-05-01 02:00] VITALS: BP 134/90
--- NOTE | 2024-05-01 05:28 | NUR ---
SHIFT SUMMARY NOC PT A/O X 4. PLEASANT AND COOPERATIVE WITH CARE. VSS. PT ON 2L/NC SPO2 >92%. DURRING SHIFT ASSESSMENT PT HAD C/O OF ABD BLOATING AND GAS FROM DINNER. PT GIVEN DOSE OF SIMETHICONE FOR GAS, PT C/O OF ABD PAIN PERSISTED AND HOSPITALIST NOTIFIED AND ORDER FOR GI COCKTAIL AND FENTANYL 25 MCG X GIVEN. PT REASSESSED AND REPORTED RELIEF. CHRONIC SUPRAPUBIC CATHETER IN PLACE PATENT, DRAINING YELLOW URINE TO GRAVITY. PT HAD INC/CONT BM X 1. SPUTUM CULTURE IS PENDING. PT CURRENTLY RESTING WITH BED IN LOWEST POSITION, AND CALL LIGHT WITHIN REACH.
[2024-05-01 05:29] LABS: BASOPHILS ABSOLUTE AUTO 0.03 K/mm3 (0.00-0.23); BASOPHILS PERCENT AUTO 0 % (0-2); EOSINOPHILS PERCENT AUTO 0 % (0-6); Hematocrit 35.1 % (33.0-51.0); Hemoglobin 11.9 g/dL (11.5-16.0); IMMATURE GRAN ABSOLUTE AUTO 0.15 K/mm3 (0.00-0.10); IMMATURE GRAN PERCENT AUTO 1 % (0-1); LYMPHOCYTES ABSOLUTE AUTO 1.03 K/mm3 (0.84-5.20); LYMPHOCYTES PERCENT AUTO 6 % (21-46); MONOCYTES ABSOLUTE AUTO 0.92 K/mm3 (0.16-1.47); MONOCYTES PERCENT AUTO 5 % (4-13); Mean Corpuscular HGB 31.4 pg (26.0-34.0); Mean Corpuscular HGB Conc 33.9 g/dL (31.5-36.5); Mean Corpuscular Volume 93 fL (80-100); Mean Platelet Volume 10.5 fL (9.1-12.4); NEUTROPHILS ABSOLUTE AUTO 15.69 K/mm3 (1.96-9.15); NEUTROPHILS PERCENT AUTO 88 % (41-73); Platelet Count 323 K/mm3 (150-400); RDW Coefficient Variation 13.1 % (11.7-14.2); RDW Standard Deviation 44.3 fL (35.1-46.3); Red Blood Cell Count 3.79 M/mm3 (3.80-5.20); White Blood Cell Count 17.82 K/mm3 (4.00-11.30)
[2024-05-01 05:58] LABS: Albumin, Blood 2.5 g/dL (3.4-5.0); Anion Gap 11 mmol/L (3-11); Blood Urea Nitrogen 23 mg/dL (8-24); Bun/Creatinine Ratio 17.7 (12.0-20.0); CO2, Blood 28 mmol/L (21-32); Chloride, Blood 103 mmol/L (98-108); Glomerular Filtration Rate 42 (60-); Glucose, Blood 136 mg/dL (70-99); Phosphorus, Blood 2.4 mg/dL (2.5-4.9); Potassium, Blood 3.6 mmol/L (3.5-5.5); Sodium, Blood 138 mmol/L (136-145)
[2024-05-01 07:20] VITALS: BP 133/85
[2024-05-01] MEDS ORDERED: Metoprolol Succinate 25 MG TABCR PO SCH (09:00)
[2024-05-01] MEDS ORDERED: Furosemide 20 MG Tab PO SCH (09:00)
[2024-05-01] MEDS ORDERED: Potassium Chloride 10 Meq Tablet SA PO SCH (09:00)
[2024-05-01] MEDS ORDERED: Sertraline HCl 50 MG Tab PO SCH (09:00)
[2024-05-01 15:29] VITALS: BP 119/72
--- NOTE | 2024-05-01 18:24 | NUR ---
SHIFT SUMMARY PT IS A/OX4, FORGETFUL AT TIMES. NO REPORTS OF CHEST PAIN OR ABDOMINAL PAIN THROUGHOUT THIS SHIFT. PT ON 2 L NC, SATS MAINTAINING >90% USING CONTINUOUS PULSE OX. PT WORKED WITH PT/OT THIS AFTERNOON. PT IS A 1 PERSON ASSIST WITH GAIT BELT AND FWW. PT UP TO CHAIR FOR MEALS. SUPRAPUBIC CARRENO PATENT AND DRAIING CLEAR, YELLOW URINE.
[2024-05-01 20:33] VITALS: BP 125/91
[2024-05-01] MEDS ORDERED: Acetaminophen 500 MG Tab PO PRN (23:35)
[2024-05-02 05:12] VITALS: BP 121/82
--- NOTE | 2024-05-02 05:30 | NUR ---
SHIFT SUMMARY NOC PT A/O X 4. PLEASANT AND COOPERATIVE WITH CARE. VSS. PT REMAINS ON 2L/NC SPO2 >92% ON CONTINOUS BIOX. PT HAD C/O OF CHANG AND TYLENOL ORDERED. SUPRAPUBIC CATHETER IN PLACE PATENT AND DRAINING YELLOW URINE TO GRAVITY. IV ABX GIVEN PER EMAR. WBC 17.82 YESTERDAY AND AWAITING AM LABS FOR IMPROVEMENT. PT CURRENTLY RESTING WITH BED IN LOWEST POSITION, AND CALL LIGHT WITHIN REACH.
[2024-05-02 05:42] LABS: BASOPHILS ABSOLUTE AUTO 0.01 K/mm3 (0.00-0.23); BASOPHILS PERCENT AUTO 0 % (0-2); EOSINOPHILS PERCENT AUTO 0 % (0-6); Hematocrit 33.9 % (33.0-51.0); Hemoglobin 11.5 g/dL (11.5-16.0); IMMATURE GRAN ABSOLUTE AUTO 0.08 K/mm3 (0.00-0.10); IMMATURE GRAN PERCENT AUTO 1 % (0-1); LYMPHOCYTES ABSOLUTE AUTO 1.39 K/mm3 (0.84-5.20); LYMPHOCYTES PERCENT AUTO 12 % (21-46); MONOCYTES ABSOLUTE AUTO 0.85 K/mm3 (0.16-1.47); MONOCYTES PERCENT AUTO 7 % (4-13); Mean Corpuscular HGB 31.9 pg (26.0-34.0); Mean Corpuscular HGB Conc 33.9 g/dL (31.5-36.5); Mean Corpuscular Volume 94 fL (80-100); Mean Platelet Volume 10.2 fL (9.1-12.4); NEUTROPHILS ABSOLUTE AUTO 9.44 K/mm3 (1.96-9.15); NEUTROPHILS PERCENT AUTO 80 % (41-73); Platelet Count 298 K/mm3 (150-400); RDW Coefficient Variation 13.1 % (11.7-14.2); RDW Standard Deviation 45.2 fL (35.1-46.3); Red Blood Cell Count 3.61 M/mm3 (3.80-5.20); White Blood Cell Count 11.77 K/mm3 (4.00-11.30)
[2024-05-02 06:06] LABS: Albumin, Blood 2.5 g/dL (3.4-5.0); Anion Gap 9 mmol/L (3-11); Blood Urea Nitrogen 23 mg/dL (8-24); Bun/Creatinine Ratio 20.9 (12.0-20.0); CO2, Blood 27 mmol/L (21-32); Calcium, Blood 8.6 mg/dL (8.5-10.1); Chloride, Blood 106 mmol/L (98-108); Glomerular Filtration Rate 51 (60-); Glucose, Blood 103 mg/dL (70-99); Phosphorus, Blood 2.8 mg/dL (2.5-4.9); Potassium, Blood 3.8 mmol/L (3.5-5.5); Sodium, Blood 138 mmol/L (136-145)
[2024-05-02 07:05] VITALS: BP 131/77
[2024-05-02 15:39] VITALS: BP 105/74
--- NOTE | 2024-05-02 16:34 | NUR ---
After receiving a referral for spiritual care, I visited the patient. The patient is lying in bed and talks about her medical issues. She then tells me that she is Christianity and would like to take communion. I go and retrieve the supplies and come back to the room and she partakes in holy communion as I lead her through the scripture readings. She is tearful as she says that she feels God's presence. SHe tells me about her family and her desire to be around long enough to share her korey with her grandchildren. She voices her appreciation for the prayer and the communion service. I will continue to remain available to the patient and the family.
--- NOTE | 2024-05-02 16:52 | NUR ---
SUMMARY- PT A/O X4, USES CALL LIGHT KNOWS LIMITS. ABLE TO GET FROM BED TO CHAIR 1 SBA, ADQ STRENGTH AND GAIT. LUNGS WITH SCATTERED RALES, STRONG MOIST COUGH, CLEARING MOD AMOUNT OF YELLOW OPAQUE PHLEGM. STARTED THIS SHIFT WITH 2L/NC, ABLE TO WEAN OFF O2 AT 1430 PLACED ON ROOM AIR. LOWEST ROOM AIR SAT 93%, WILL CONT TO JENNIFER. ENC PT TO COUGH AND DEEP BREATH. PLAN LIKELY HOME TOMORROW. WILL REPORT TO NOC RN
[2024-05-02 19:37] VITALS: BP 118/75
--- NOTE | 2024-05-03 02:54 | NUR ---
SHIFT SUMMARY PT ALERT ORIENTED X 4 ABLE TO VERBALIZE NEEDS REQUIRES 1 PERSON SBA WITH WALKER TO TRANSFER FROM CHAIR TO BED SUPRA PUBIC CATHETER INTACT DRAINING CLEAR YELLOW URINE. NO C/O PAIN THIS SHIFT VSS ON RA SATTING AT 94%. HAS BEEN DOING WELL ON RA WITH NO C/O SOB. REMAINS ON A CONTINUOUS PULSE OX. REMAINS ON ROCEPHIN QDAY FOR PNEUMONIA. SHES A POSSIBILITY FOR DISCHARGE TO HOME TODAY. SHES RESTING IN BED AT THIS TIME WITH CALL LIGHT IN REACH
[2024-05-03 03:13] VITALS: BP 130/78
[2024-05-03 06:09] LABS: BASOPHILS ABSOLUTE AUTO 0.02 K/mm3 (0.00-0.23); BASOPHILS PERCENT AUTO 0 % (0-2); EOSINOPHILS ABSOLUTE AUTO 0.01 K/mm3 (0.00-0.68); EOSINOPHILS PERCENT AUTO 0 % (0-6); Hematocrit 33.4 % (33.0-51.0); Hemoglobin 11.4 g/dL (11.5-16.0); IMMATURE GRAN ABSOLUTE AUTO 0.14 K/mm3 (0.00-0.10); IMMATURE GRAN PERCENT AUTO 1 % (0-1); LYMPHOCYTES ABSOLUTE AUTO 1.22 K/mm3 (0.84-5.20); LYMPHOCYTES PERCENT AUTO 11 % (21-46); MONOCYTES ABSOLUTE AUTO 0.69 K/mm3 (0.16-1.47); MONOCYTES PERCENT AUTO 6 % (4-13); Mean Corpuscular HGB 31.9 pg (26.0-34.0); Mean Corpuscular HGB Conc 34.1 g/dL (31.5-36.5); Mean Corpuscular Volume 94 fL (80-100); Mean Platelet Volume 10.8 fL (9.1-12.4); NEUTROPHILS PERCENT AUTO 81 % (41-73); Platelet Count 309 K/mm3 (150-400); RDW Coefficient Variation 13.2 % (11.7-14.2); RDW Standard Deviation 45.6 fL (35.1-46.3); Red Blood Cell Count 3.57 M/mm3 (3.80-5.20); White Blood Cell Count 10.88 K/mm3 (4.00-11.30)
[2024-05-03 07:54] VITALS: BP 138/77
[2024-05-03] MEDS ORDERED: AMOCLA875 PO (09:42)
[2024-05-03] MEDS ORDERED: GUAI600T33 PO (09:42)
[2024-05-03] MEDS ORDERED: PRED20 PO (09:45)
[2024-05-03] MEDS ORDERED: VISBIOME 112.51 EACH PO (09:45)
[2024-05-03] MEDS ORDERED: ACET500 PO (13:10)
[2024-05-03] MEDS ORDERED: CARBLEV25 SL (13:12)
[2024-05-03 15:25] VITALS: BP 115/67
--- NOTE | 2024-05-03 17:00 | NUR ---
PT DISCHARGED 1700 WITH DC INSTRUCTIONS. DAUGHTER IN LAW HERE TO PICK PT UP AND DRIVE HER HOME. WHEELCHAIR OUT TO PRIVATE CAR FOR DC. BELONGINGS SENT HOME WITH PT
== END 2024-05-03 17:06 | disposition home health service (06) | DRG 193 ==
LOC: ER 11:59 → ERHOLD 12:00 → MEDS 12:00
PROVIDERS: Emergency Medicine; Family Medicine; Student in an Organized Health Care Education/Training Program; ADMIT Student in an Organized Health Care Education/Training Program
PROC: 0T2BX0Z Change Drainage Device in Bladder, External Approach (ICD-10-PCS; principal; 2024-04-29)
DX: J18.0 Bronchopneumonia, unspecified organism (principal); J96.01 Acute respiratory failure with hypoxia; J44.0 Chronic obstructive pulmonary disease with (acute) lower respiratory infection; J44.1 Chronic obstructive pulmonary disease with (acute) exacerbation; F41.9 Anxiety disorder, unspecified; F32.A Depression, unspecified; E66.9 Obesity, unspecified; M35.3 Polymyalgia rheumatica; Z66 Do not resuscitate; I12.9 Hypertensive chronic kidney disease with stage 1 through stage 4 chronic kidney disease, or unspecified chronic kidney disease; I49.3 Ventricular premature depolarization; R79.1 Abnormal coagulation profile; J43.9 Emphysema, unspecified; I25.10 Atherosclerotic heart disease of native coronary artery without angina pectoris; N18.31 Chronic kidney disease, stage 3a; G62.9 Polyneuropathy, unspecified; N31.9 Neuromuscular dysfunction of bladder, unspecified; F17.210 Nicotine dependence, cigarettes, uncomplicated; M47.816 Spondylosis without myelopathy or radiculopathy, lumbar region; Z86.711 Personal history of pulmonary embolism; Z68.27 Body mass index [BMI] 27.0-27.9, adult; Z79.52 Long term (current) use of systemic steroids; Z79.01 Long term (current) use of anticoagulants; Z79.891 Long term (current) use of opiate analgesic; Z92.21 Personal history of antineoplastic chemotherapy; Z93.50 Unspecified cystostomy status
CPT/HCPCS: 36415; 51705; 71045; 71260; 80053; 80069; 83735; 83880; 84145; 84484; 85025; 85379; 87070; 87205; 87428-QW; 93005; 93010; 94640; 94664; 94760; 94762; 96365-59; 96366; 96367; 96375-59; 96376; 97110; 97162; 97165; 97530; 97535; 99285-25; A9270; C2627; G0378; J0456; J0696; J1885; J2919; J3010; J7050; J7060; J7512; Q9967

== ENCOUNTER 2024-05-07 09:10 | Emergency (ER) | payer OTHER ==
[~2024-05-07] VITALS: Ht 162.6 cm; Wt 63.5 kg
[~2024-05-07 09:10] MED LIST changes: +ACET500 PO; +BENZ100A PO; +CARBLEV25 SL; +DOXY100 PO; +GUAI600T33 PO; +PRED20 PO
[2024-05-07 10:50] VITALS: BP 127/109
[2024-05-07 12:08] LABS: Source, Urine Foley catheter
[2024-05-07 12:14] LABS: BASOPHILS ABSOLUTE AUTO 0.05 K/mm3 (0.00-0.23); BASOPHILS PERCENT AUTO 1 % (0-2); EOSINOPHILS ABSOLUTE AUTO 0.14 K/mm3 (0.00-0.68); EOSINOPHILS PERCENT AUTO 2 % (0-6); Hematocrit 40.6 % (33.0-51.0); Hemoglobin 13.8 g/dL (11.5-16.0); IMMATURE GRAN ABSOLUTE AUTO 0.39 K/mm3 (0.00-0.10); IMMATURE GRAN PERCENT AUTO 4 % (0-1); LYMPHOCYTES ABSOLUTE AUTO 1.07 K/mm3 (0.84-5.20); LYMPHOCYTES PERCENT AUTO 12 % (21-46); MONOCYTES ABSOLUTE AUTO 0.49 K/mm3 (0.16-1.47); MONOCYTES PERCENT AUTO 6 % (4-13); Mean Corpuscular HGB 31.5 pg (26.0-34.0); Mean Corpuscular Volume 93 fL (80-100); Mean Platelet Volume 9.8 fL (9.1-12.4); NEUTROPHILS ABSOLUTE AUTO 6.82 K/mm3 (1.96-9.15); NEUTROPHILS PERCENT AUTO 76 % (41-73); Platelet Count 404 K/mm3 (150-400); RDW Coefficient Variation 13.2 % (11.7-14.2); RDW Standard Deviation 45.1 fL (35.1-46.3); Red Blood Cell Count 4.38 M/mm3 (3.80-5.20); White Blood Cell Count 8.96 K/mm3 (4.00-11.30)
[2024-05-07 12:37] LABS: Albumin, Blood 2.6 g/dL (3.4-5.0); Albumin/Globulin Ratio 0.8 (0.8-1.8); Bilirubin, Total 0.5 mg/dL (0.1-1.0); Bun/Creatinine Ratio 17.4 (12.0-20.0); Calcium, Blood 8.9 mg/dL (8.5-10.1); Creatinine, Blood 1.09 mg/dL (0.40-1.00); Globulin, Blood 3.4 g/dL (2.2-4.0); Potassium, Blood 3.5 mmol/L (3.5-5.5)
[2024-05-07 12:52] LABS: Appearance, Urine Cloudy (Clear); Bilirubin, Urine Neg (Neg); Blood, Urine 1+ (Neg); Color, Urine Yellow (P-Yellow); Glucose Qualitative, Urine Neg (Neg); Ketones, Urine 2+ (Neg); Leukocyte Esterase, Urine 3+ (Neg); Nitrite, Urine Neg (Neg); Protein, Urine Neg (Neg); Urobilinogen, Urine NORM (Normal); pH, Urine 6.5 (5.0-8.0)
[2024-05-07 13:26] LABS: Calcium Oxalate Crystals Rare /hpf; Red Blood Cells, Urine 0-2 /hpf (0-2); Yeast/Fungi Urine Many /hpf
[2024-05-07 13:27] LABS: Bacteria Few /hpf; Squamous Epithelial Cells Rare /hpf (Few)
== END 2024-05-07 18:17 | disposition home or self-care (01) ==
LOC: ER 09:10
PROVIDERS: Student in an Organized Health Care Education/Training Program
DX: T83.098A Other mechanical complication of other urinary catheter, initial encounter (principal); R34 Anuria and oliguria; Y84.6 Urinary catheterization as the cause of abnormal reaction of the patient, or of later complication, without mention of misadventure at the time of the procedure; I12.9 Hypertensive chronic kidney disease with stage 1 through stage 4 chronic kidney disease, or unspecified chronic kidney disease; N18.30 Chronic kidney disease, stage 3 unspecified; J44.9 Chronic obstructive pulmonary disease, unspecified; E66.9 Obesity, unspecified; Z79.899 Other long term (current) drug therapy; Z79.01 Long term (current) use of anticoagulants
CPT/HCPCS: 51798; 71046; 80053; 81001; 85025; 87086; 93005; 93010; 99284-25

== ENCOUNTER 2024-05-24 12:57 | Inpatient (IN) | payer OTHER ==
[~2024-05-24] VITALS: Ht 165.1 cm; Wt 77.1 kg
[2024-05-24 13:25] LABS: BASOPHILS ABSOLUTE AUTO 0.05 K/mm3 (0.00-0.23); BASOPHILS PERCENT AUTO 1 % (0-2); EOSINOPHILS ABSOLUTE AUTO 0.16 K/mm3 (0.00-0.68); EOSINOPHILS PERCENT AUTO 3 % (0-6); Hematocrit 37.3 % (33.0-51.0); Hemoglobin 12.5 g/dL (11.5-16.0); IMMATURE GRAN ABSOLUTE AUTO 0.04 K/mm3 (0.00-0.10); IMMATURE GRAN PERCENT AUTO 1 % (0-1); LYMPHOCYTES PERCENT AUTO 21 % (21-46); MONOCYTES ABSOLUTE AUTO 0.49 K/mm3 (0.16-1.47); MONOCYTES PERCENT AUTO 10 % (4-13); Mean Corpuscular HGB 30.9 pg (26.0-34.0); Mean Corpuscular HGB Conc 33.5 g/dL (31.5-36.5); Mean Corpuscular Volume 92 fL (80-100); Mean Platelet Volume 9.5 fL (9.1-12.4); NEUTROPHILS ABSOLUTE AUTO 2.95 K/mm3 (1.96-9.15); NEUTROPHILS PERCENT AUTO 63 % (41-73); Platelet Count 464 K/mm3 (150-400); RDW Standard Deviation 44.1 fL (35.1-46.3); Red Blood Cell Count 4.05 M/mm3 (3.80-5.20); White Blood Cell Count 4.69 K/mm3 (4.00-11.30)
[2024-05-24 13:45] LABS: Albumin, Blood 2.6 g/dL (3.4-5.0); Albumin/Globulin Ratio 0.8 (0.8-1.8); Bilirubin, Total 0.4 mg/dL (0.1-1.0); Creatinine, Blood 0.87 mg/dL (0.40-1.00); Globulin, Blood 3.1 g/dL (2.2-4.0); Potassium, Blood 2.9 mmol/L (3.5-5.5); Total Protein, Blood 5.7 g/dL (6.4-8.2)
[2024-05-24] MEDS ORDERED: Albuterol 2.5 MG/3 ML VIAL INH SCH (14:10)
[2024-05-24] MEDS ORDERED: Ipratropium Bromide INH 0.02% 0.5 mg/2.5ML Vial INH SCH (14:10)
[2024-05-24 14:37] LABS: Base Excess Venous 4.5 mmol/L; Bicarbonate Venous 27.6 mmol/L (24.0-30.0); PCO2 Venous 46.3 mmHg (38-42); pH Blood Venous 7.41 (7.34-7.37)
[2024-05-24] MEDS ORDERED: Ondansetron HCl 2 MG / ML 2ML Vial IV ONE (14:45)
[2024-05-24] MEDS ORDERED: Potassium Chloride 20 MEQ/15 ML UDC PO ONE (14:45)
[2024-05-24 15:06] LABS: CORONAVIRUS COVID-19 AG Negative (NEGATIVE); INFLUENZA A AG Negative (NEGATIVE); INFLUENZA B AG Negative (NEGATIVE)
[2024-05-24 15:54] LABS: Source, Urine Foley catheter
[2024-05-24 15:57] LABS: Appearance, Urine Hazy (Clear); Bilirubin, Urine Neg (Neg); Blood, Urine 2+ (Neg); Color, Urine Yellow (P-Yellow); Glucose Qualitative, Urine Neg (Neg); Ketones, Urine 1+ (Neg); Leukocyte Esterase, Urine 3+ (Neg); Nitrite, Urine Pos (Neg); Protein, Urine 1+ (Neg); Urobilinogen, Urine 1+ (Normal)
[2024-05-24 16:04] LABS: White Blood Cells, Urine TNTC /hpf (0-5)
[2024-05-24 16:05] LABS: Bacteria Many /hpf; Squamous Epithelial Cells Few /hpf (Few); Yeast/Fungi Urine Mod /hpf
[2024-05-24] MEDS ORDERED: CefTRIAXone Sodium 1,000 MG in NS 100 ML IV ONE (16:25)
[2024-05-24] MEDS ORDERED: MethylPREDNISolone Sod Succ 125 MG Vial IV ONE (16:30)
[2024-05-24] MEDS ORDERED: NS 1,000 ML IV SCH ×2 (16:40→22:10)
[2024-05-24] MEDS ORDERED: Fluconazole 100 MG Tab PO ONE (16:45)
[2024-05-24] MEDS ORDERED: Ipratropium/Albuterol SulF 2.5-0.5MG/3 ML Amp INH SCH (18:15)
[2024-05-24] MEDS ORDERED: Ondansetron 4 MG TAB PO PRN (18:15)
[2024-05-24] MEDS ORDERED: Acetaminophen 325 MG TABLET PO PRN (18:20)
[2024-05-24] MEDS ORDERED: Lactated Ringer's 1,000 ML IV SCH (19:25)
[2024-05-24] MEDS ORDERED: Mometasone/Formoterol MDI 200/5 mcg 13 GM INH SCH (20:35)
[2024-05-24 21:00] VITALS: BP 117/75
[2024-05-24] MEDS ORDERED: Lactobacil 2-S.Thermo-Bifido 1 1 Cap PO SCH (21:00)
[2024-05-24] MEDS ORDERED: Apixaban 5 MG Tab PO SCH (21:00)
[2024-05-24] MEDS ORDERED: Zinc Oxide Ointment 30 GM TOP PRN (21:45)
[2024-05-25 05:02] VITALS: BP 129/74
[2024-05-25 05:06] LABS: BASOPHILS PERCENT AUTO 0 % (0-2); EOSINOPHILS PERCENT AUTO 0 % (0-6); Hematocrit 30.7 % (33.0-51.0); Hemoglobin 10.2 g/dL (11.5-16.0); IMMATURE GRAN ABSOLUTE AUTO 0.08 K/mm3 (0.00-0.10); IMMATURE GRAN PERCENT AUTO 3 % (0-1); LYMPHOCYTES ABSOLUTE AUTO 0.45 K/mm3 (0.84-5.20); LYMPHOCYTES PERCENT AUTO 14 % (21-46); MONOCYTES ABSOLUTE AUTO 0.06 K/mm3 (0.16-1.47); MONOCYTES PERCENT AUTO 2 % (4-13); Mean Corpuscular HGB 30.9 pg (26.0-34.0); Mean Corpuscular HGB Conc 33.2 g/dL (31.5-36.5); Mean Corpuscular Volume 93 fL (80-100); Mean Platelet Volume 9.6 fL (9.1-12.4); NEUTROPHILS ABSOLUTE AUTO 2.53 K/mm3 (1.96-9.15); NEUTROPHILS PERCENT AUTO 81 % (41-73); Platelet Count 413 K/mm3 (150-400); RDW Coefficient Variation 13.2 % (11.7-14.2); RDW Standard Deviation 44.9 fL (35.1-46.3); White Blood Cell Count 3.12 K/mm3 (4.00-11.30)
[2024-05-25 05:40] LABS: Albumin, Blood 2.2 g/dL (3.4-5.0); Albumin/Globulin Ratio 0.9 (0.8-1.8); Bilirubin, Total 0.2 mg/dL (0.1-1.0); Bun/Creatinine Ratio 12.2 (12.0-20.0); Calcium, Blood 8.5 mg/dL (8.5-10.1); Creatinine, Blood 0.9 mg/dL (0.40-1.00); Globulin, Blood 2.5 g/dL (2.2-4.0); Potassium, Blood 3.2 mmol/L (3.5-5.5); Total Protein, Blood 4.7 g/dL (6.4-8.2)
--- NOTE | 2024-05-25 05:47 | NUR ---
Shift Summary Pt admitted to this unit from ED for complex UTI, cellulitis in eduardo area, and COPD exasperation. She has a chronic suprapubic catheter which was changed in the ED and a urine sample sent. She has redness all around her eduardo area which the provider believes to be cellulitis per ED physician note. She has wheezy sounds t/o the lungs, is on RA and sat above 92% with cont. O2 monitoring as ordered. Per pt her urine was black the last two days but upon admission to this floor her urine has been yellow, slightly dark. She is AOx4, very weak and 1 assist to BSC with FWW. She is on tele running SR to ST, no events on tele this shift. She slept well t/o most of the night.
[2024-05-25] MEDS ORDERED: Potassium Chloride 40 MEQ in NS 250 ML IV ONE (06:45)
[2024-05-25] MEDS ORDERED: NS 1,000 ML IV SCH ×2 (07:00→07:35)
[2024-05-25 07:53] VITALS: BP 135/79
[2024-05-25] MEDS ORDERED: NS 500 ML IV SCH (08:00)
[2024-05-25] MEDS ORDERED: Sertraline HCl 50 MG Tab PO SCH (09:00)
[2024-05-25] MEDS ORDERED: Metoprolol Succinate 25 MG TABCR PO SCH (09:00)
[2024-05-25] MEDS ORDERED: Magnesium Sulf 2 GM/Water 50ML 50 ML IV ONE (14:20)
[2024-05-25 15:54] VITALS: BP 125/83
[2024-05-25] MEDS ORDERED: CefTRIAXone Sodium 1,000 MG in NS 100 ML IV SCH (18:00)
--- NOTE | 2024-05-25 18:13 | NUR ---
SHIFT SUMMARY PT CONT LEVEL OF CARE WITH NO ACUTE CHANGES NOTED. PT REMAINS A&OX 4 AND ASSIST X1 WITH FWW TO BSC. PT CONT TO HAVE REDNESS AND SWELLING TO ARIAN AREA. MEPLEX WAS PLACED TO COCCYX THIS SHIFT FOR PREVENTIVE MEASURES ARE AREA IS NOTED TO BE SLIGHTLY RED. PT CONT ABT FOR UTI AND URINE CULTURES ARE STILL PENDING AT THIS TIME.
[2024-05-25 19:43] VITALS: BP 139/79
--- NOTE | 2024-05-26 01:59 | NUR ---
LOW URINE OUTPUT Day shift had report pt had 300 ml out all day despite 1500 ml IV fluid in plus PO intake. Pt has had around 150 out tonight and drank around 700 mL. I assessed her suprapubic catheter for clogging and it is patent. Bladder scan revealed 50ml. I called the hospitalist who said he would review the chart.
[2024-05-26 03:03] VITALS: BP 133/82
--- NOTE | 2024-05-26 06:15 | NUR ---
Shift Summary Pt had low urine output during day shift and this noc shift, see previous nursing note: MD aware, bladder scan done, lau assessed for clot. Mepilex in place on coccyx, C/D/I. Pt is very weak and is 2 assist to the BSC, she tried to have a bowel movement but was unsuccessful. On O2 monitor, no desaturation events. O2 sat >= 92% on RA.
[2024-05-26 07:23] VITALS: BP 133/75
[2024-05-26] MEDS ORDERED: Metoprolol Succinate 25 MG TABCR PO ONE (11:15)
[2024-05-26 15:40] VITALS: BP 121/73
--- NOTE | 2024-05-26 16:17 | NUR ---
SUMMARY- NO ACUTE CHANGES THIS SHIFT, PT SINUS TACH AT 120S THIS MORNING. MD CHANGED PO METOPROLOL. PT NO SINUS 90S. NO COMPLAINTS OF CHEST PAIN OR SOB. PT DID REPORT BACK PAIN RELATED TO OSTEOARTHRITIS. TREATED PER EMAR. PT CALLS APPROPRIATELY, SUPRAPUBIC CATHETER DRAINING BY GRAVITY. 1 ASSIST TO BSC.
[2024-05-26 19:35] VITALS: BP 127/79
--- NOTE | 2024-05-26 22:17 | NUR ---
NEW T-ORDER FOR TYLENOL 325-650MG Q6HRS RECEIVED FROM THE ON-CALL HOSPITALIST . ENTERED TO [employer], SEE EMAR.
[2024-05-26] MEDS ORDERED: Acetaminophen 325 MG TABLET PO PRN (22:20)
[2024-05-27 03:21] VITALS: BP 137/78
--- NOTE | 2024-05-27 03:24 | NUR ---
SHIFT SUMMARY NO ACUTE CHANGES DURING THIS SHIFT. MEDICATED WITH PRN TYLENOL FOR 10/10 BACKPAIN AND HX OF OSTEOARTHITIS. SUPRAPUBIC CATHETER DRAINING WELL. TELE: SR @78, PT DENIES PAIN/PRESSURE. CONTINUOUS PULSE OXIMETER SAT'S> 90%. BED AT THE LOWEST POSITION, CALL LIGHT W/I REACH. PT IS A/O X4, ABLE TO MAKE HER NEEDS KNOWN, SOMEWHAT AGITATED DURING THIS SHIFT. MOSTLY COOPERATIVE WITH CARE.
[2024-05-27 07:50] VITALS: BP 142/89
[2024-05-27] MEDS ORDERED: Albuterol 2.5 MG/3 ML VIAL INH PRN (09:00)
[2024-05-27] MEDS ORDERED: Metoprolol Succinate 25 MG TABCR PO SCH (09:00)
[2024-05-27 15:49] VITALS: BP 147/85
--- NOTE | 2024-05-27 16:50 | NUR ---
SUMMARY NO ACUTE CHANGES THIS SHIFT PT REPORT BETTER SLEEP OVERNIGHT, 1-2 PERSON ASSIST WITH FWW TO BSC. R/A. CATH CARE PROVIDED BY AID. ABLE TO MAKE NEEDS KNOWN.
[2024-05-27 19:58] VITALS: BP 143/85
[2024-05-28 03:07] VITALS: BP 157/97
--- NOTE | 2024-05-28 03:28 | NUR ---
SHIFT SUMMARY NO ACUTE EVENTS DURING THIS SHIFT. PT IS A/O X4, RESTING IN BED T/O THIS SHIFT. LE BILATERALLY +2 EDEMA, ELEVATED WITH PILLOWS. COCCYX FLOATED WITH PILLOWS. TELE: SR @80. SUPRAPUBIC CATHETER DRAINING LIGHT YELLOW COLOR URINE, OUTPUT>200MLS. PT C/O NAUSEA, PRN ZOFRAN PO ADMINISTERED AT HS WITH GOOD EFFECTIVNESS. CONTINUOUS PULSE OXIMETER SAT'S>94%. BED AT THE LOWEST POSITION, CALL LIGHT W/I REACH. PT IS ABLE TO MAKE HER NEEDS KNOWN AND IS COOPERATIVE WITH CARE.
[2024-05-28 05:01] LABS: BASOPHILS ABSOLUTE AUTO 0.04 K/mm3 (0.00-0.23); BASOPHILS PERCENT AUTO 1 % (0-2); EOSINOPHILS ABSOLUTE AUTO 0.11 K/mm3 (0.00-0.68); EOSINOPHILS PERCENT AUTO 2 % (0-6); Hematocrit 31.6 % (33.0-51.0); Hemoglobin 10.5 g/dL (11.5-16.0); IMMATURE GRAN ABSOLUTE AUTO 0.11 K/mm3 (0.00-0.10); IMMATURE GRAN PERCENT AUTO 2 % (0-1); LYMPHOCYTES ABSOLUTE AUTO 1.43 K/mm3 (0.84-5.20); LYMPHOCYTES PERCENT AUTO 26 % (21-46); MONOCYTES ABSOLUTE AUTO 0.58 K/mm3 (0.16-1.47); MONOCYTES PERCENT AUTO 11 % (4-13); Mean Corpuscular HGB 31.2 pg (26.0-34.0); Mean Corpuscular HGB Conc 33.2 g/dL (31.5-36.5); Mean Corpuscular Volume 94 fL (80-100); Mean Platelet Volume 9.7 fL (9.1-12.4); NEUTROPHILS ABSOLUTE AUTO 3.15 K/mm3 (1.96-9.15); NEUTROPHILS PERCENT AUTO 58 % (41-73); Platelet Count 362 K/mm3 (150-400); RDW Coefficient Variation 13.6 % (11.7-14.2); RDW Standard Deviation 46.4 fL (35.1-46.3); Red Blood Cell Count 3.37 M/mm3 (3.80-5.20); White Blood Cell Count 5.42 K/mm3 (4.00-11.30)
[2024-05-28 05:43] LABS: Albumin, Blood 2.1 g/dL (3.4-5.0); Albumin/Globulin Ratio 0.9 (0.8-1.8); Bilirubin, Total 0.2 mg/dL (0.1-1.0); Bun/Creatinine Ratio 11.8 (12.0-20.0); Calcium, Blood 8.3 mg/dL (8.5-10.1); Creatinine, Blood 1.02 mg/dL (0.40-1.00); Globulin, Blood 2.4 g/dL (2.2-4.0); Potassium, Blood 3.8 mmol/L (3.5-5.5); Total Protein, Blood 4.5 g/dL (6.4-8.2)
[2024-05-28] MEDS ORDERED: DULERA 100 MCG/13 GM INH (07:10)
[2024-05-28] MEDS ORDERED: Cefpodoxime Pr100 MG PO (07:10)
[2024-05-28 07:48] VITALS: BP 150/77
[2024-05-28] MEDS ORDERED: Amoxicillin 875 MG Tab PO SCH (08:00)
[2024-05-28] MEDS ORDERED: AMOX875 PO (10:41)
[2024-05-28 15:50] VITALS: BP 133/76
--- NOTE | 2024-05-28 16:44 | NUR ---
NO ACUTE CHANGES THIS SHIFT. PT.OT EVAL TODAY, PLAN TO DISCHARGE TO SNF IN NEXT FEW DAYS, MEPILEX APPLIED TO COCCYX, RED AND BLANCHABLE. ALERT AND ORIENTED X4, FLAT DEPRESSED AFFECT. R.A ABLE TO EXPRESS NEEDS, SMALL BM 1 PERSON ASSIST WITH FWW TO BSC
[2024-05-28 20:22] VITALS: BP 136/82
[2024-05-29 00:51] VITALS: BP 134/77
[2024-05-29] MEDS ORDERED: HyDROXyzine HCl 10 MG Tab PO ONE (01:55)
--- NOTE | 2024-05-29 01:55 | NUR ---
@8785 NEW T-ORDER RECEIVED FROM THE ON-CALL HOSPITALIST : HYDROXYZINE 25MG PO ONCE. ENTERED TO [employer], SEE EMAR. NO ADDITIONAL NEW ORDERS AT THIS TIME.
[2024-05-29] MEDS ORDERED: HyDROXyzine HCl 25 MG Tab PO ONE (02:25)
--- NOTE | 2024-05-29 03:05 | NUR ---
SHIFT SUMMARY NO ACUTE CHANGES DURING THIS SHIFT. ONE-TIME ORDER OF PO HYDROXYZINE 25MG RECEIVED FROM THE ON-CALL HOSPITALIST. ADMINISTERED FOR C/O INSOMNIA. PRN TYLENOL ADMIN @HS FOR C/O 10/02 OA, CHRONIC PAIN. SUPRAPUBIC CATHETER DRAINING LIGHT YELLOW COLOR URINE. TELE:NSR @68 WITH SOME PAC'S. PT DENIES PRESSURE/PAIN/SOB. CONTINUOUS PULSE OXIMETER, SAT'S>93% ON RA. +2 LE EDEMA BILATERALLY, ELEVATED WITH PILLOWS. PT IS A/O X4,B WITHDRAWN AND HAS A FLAT AFFECT. PT IS COOPERATIVE WITH CARE. BED AT THE LOWEST POSITION, CALL LIGHT W/I REACH. PT IS ABLE TO MAKE HER NEEDS KNOWN.
[2024-05-29 04:46] VITALS: BP 147/84
[2024-05-29 05:13] LABS: BASOPHILS ABSOLUTE AUTO 0.05 K/mm3 (0.00-0.23); BASOPHILS PERCENT AUTO 1 % (0-2); EOSINOPHILS ABSOLUTE AUTO 0.16 K/mm3 (0.00-0.68); EOSINOPHILS PERCENT AUTO 3 % (0-6); Hematocrit 33.2 % (33.0-51.0); IMMATURE GRAN PERCENT AUTO 4 % (0-1); LYMPHOCYTES ABSOLUTE AUTO 1.32 K/mm3 (0.84-5.20); LYMPHOCYTES PERCENT AUTO 23 % (21-46); MONOCYTES PERCENT AUTO 9 % (4-13); Mean Corpuscular HGB 31.2 pg (26.0-34.0); Mean Corpuscular HGB Conc 33.1 g/dL (31.5-36.5); Mean Corpuscular Volume 94 fL (80-100); Mean Platelet Volume 9.9 fL (9.1-12.4); NEUTROPHILS ABSOLUTE AUTO 3.47 K/mm3 (1.96-9.15); NEUTROPHILS PERCENT AUTO 61 % (41-73); Platelet Count 352 K/mm3 (150-400); RDW Coefficient Variation 13.6 % (11.7-14.2); RDW Standard Deviation 46.6 fL (35.1-46.3); Red Blood Cell Count 3.53 M/mm3 (3.80-5.20)
[2024-05-29 05:39] LABS: Albumin, Blood 2.2 g/dL (3.4-5.0); Albumin/Globulin Ratio 0.8 (0.8-1.8); Bilirubin, Total 0.3 mg/dL (0.1-1.0); Bun/Creatinine Ratio 11.3 (12.0-20.0); Calcium, Blood 8.6 mg/dL (8.5-10.1); Creatinine, Blood 1.06 mg/dL (0.40-1.00); Globulin, Blood 2.6 g/dL (2.2-4.0); Potassium, Blood 3.8 mmol/L (3.5-5.5); Total Protein, Blood 4.8 g/dL (6.4-8.2)
[2024-05-29 07:24] VITALS: BP 148/80
[2024-05-29 16:10] VITALS: BP 133/80
--- NOTE | 2024-05-29 17:54 | NUR ---
SHIFT SUMMARY PT A&OX4. PT ADMITTED DUE TO COMPLICATED UTI. CATH CARE COMPLETE TODAY. PT GETTING ORAL ANTIBIOTIC. CATHETER DRAINING WITH NO DEPENDENT LOOPS. PT REPORTED NO PAIN TODAY. TURNED Q2 HOURS. PT HAS MEPILEX ON BOTTOM. PT WORKED WITH PHYSICAL THERAPY TODAY. PT WAS UP IN CHAIR DURING SHIFT PT AMBULATES AND PIVOTS TO BSC WITH 2 PERSON ASSIST. PT ON TELE. CONT. PULSE OX ON, PT SPO2 IS 95% ON ROOM AIR. PT IN BED IN LOWEST POSITION, CALLS APPROPRIATE, CALL LIGHT IN REACH. PLAN FOR DISCHARGE TO SNF.
[2024-05-29 19:27] VITALS: BP 123/64
[2024-05-30 01:53] VITALS: BP 128/68
--- NOTE | 2024-05-30 03:19 | NUR ---
[employer] SUMMARY VSS. SON VISITED AT SHIFT COMMENCE, TOLERATED SNACK HE BROUGHT. SUPRAPUBIC CATH DRAINING DIAMOND. REPOSITIONED INTERMITTENTLY PT WOULD ALLOW. UP TO BEDSIDE COMMODE X 1 WITH ASSIST FOR BM. HAS BEEN RESTING INTERMITTENTLY WITH HOB ELEVATED ABOUT 20-30 DEGREES FOR COMFORT. CALL LIGHT IN REACH, RAILS UP X 2 AND BED IN LOW POSITION FOR SAFETY. DENIED PAIN WHEN ASKED. WILL CONT TO MONITOR
[2024-05-30 05:16] LABS: BASOPHILS ABSOLUTE AUTO 0.07 K/mm3 (0.00-0.23); BASOPHILS PERCENT AUTO 1 % (0-2); EOSINOPHILS ABSOLUTE AUTO 0.23 K/mm3 (0.00-0.68); EOSINOPHILS PERCENT AUTO 3 % (0-6); Hematocrit 33.6 % (33.0-51.0); Hemoglobin 11.1 g/dL (11.5-16.0); IMMATURE GRAN ABSOLUTE AUTO 0.31 K/mm3 (0.00-0.10); IMMATURE GRAN PERCENT AUTO 4 % (0-1); LYMPHOCYTES ABSOLUTE AUTO 1.51 K/mm3 (0.84-5.20); LYMPHOCYTES PERCENT AUTO 21 % (21-46); MONOCYTES ABSOLUTE AUTO 0.76 K/mm3 (0.16-1.47); MONOCYTES PERCENT AUTO 10 % (4-13); Mean Corpuscular HGB 31.4 pg (26.0-34.0); Mean Corpuscular Volume 95 fL (80-100); Mean Platelet Volume 9.9 fL (9.1-12.4); NEUTROPHILS ABSOLUTE AUTO 4.43 K/mm3 (1.96-9.15); NEUTROPHILS PERCENT AUTO 61 % (41-73); Platelet Count 384 K/mm3 (150-400); RDW Coefficient Variation 13.8 % (11.7-14.2); RDW Standard Deviation 48.6 fL (35.1-46.3); Red Blood Cell Count 3.54 M/mm3 (3.80-5.20); White Blood Cell Count 7.31 K/mm3 (4.00-11.30)
[2024-05-30 05:56] LABS: Albumin, Blood 2.3 g/dL (3.4-5.0); Bilirubin, Total 0.2 mg/dL (0.1-1.0); Bun/Creatinine Ratio 13.9 (12.0-20.0); Calcium, Blood 8.4 mg/dL (8.5-10.1); Creatinine, Blood 1.01 mg/dL (0.40-1.00); Globulin, Blood 2.4 g/dL (2.2-4.0); Potassium, Blood 4.1 mmol/L (3.5-5.5); Total Protein, Blood 4.7 g/dL (6.4-8.2)
[2024-05-30 07:56] VITALS: BP 134/78
[2024-05-30 11:11] VITALS: BP 124/65
--- NOTE | 2024-05-30 11:46 | NUR ---
ATTEMPTED TO CALL [facility] FOR REPORT, NURSE DOMENIC
--- NOTE | 2024-05-30 12:25 | NUR ---
DISCHARGE NOTE PT TRANSFERED TO [facility] AT 1230HRS W/C MEDICAL TRANSPORT. REPORT CALLED TO RECIEVING NURSE DOROTA. PT OX4, SLEPT THIS AM, CLEAR YELLOW URINE TO SUPRA PUBIC CATHETER. PO FLUIDS ENCOURAGED AND BETTER PO INTAKE THIS AM. PIV AND TELE REMOVED BY CONCRETE SCULPTOR PRIOR TO TRANSFER. +NAUSEA THIS AM, TREATED WITH ZOFRAN, C/O GENERALLY FEELING HER STOMACH WAS "OFF". NO QUESTIONS OR CONCERNS PRIOR TO TRANSFER.
== END 2024-05-30 12:35 | DRG 872 ==
LOC: ER 12:57 → ERHOLD 12:58 → MEDS 12:58
PROVIDERS: Emergency Medicine; Family Medicine; Internal Medicine; Student in an Organized Health Care Education/Training Program; ADMIT Internal Medicine
DX: A41.9 Sepsis, unspecified organism (principal); N39.0 Urinary tract infection, site not specified; E87.20 Acidosis, unspecified; J44.1 Chronic obstructive pulmonary disease with (acute) exacerbation; I25.10 Atherosclerotic heart disease of native coronary artery without angina pectoris; F32.9 Major depressive disorder, single episode, unspecified; Z85.3 Personal history of malignant neoplasm of breast; Z92.3 Personal history of irradiation; Z92.21 Personal history of antineoplastic chemotherapy; B96.89 Other specified bacterial agents as the cause of diseases classified elsewhere; Z86.711 Personal history of pulmonary embolism; Z79.899 Other long term (current) drug therapy; Z79.01 Long term (current) use of anticoagulants; E83.42 Hypomagnesemia; E87.6 Hypokalemia; I12.9 Hypertensive chronic kidney disease with stage 1 through stage 4 chronic kidney disease, or unspecified chronic kidney disease; E66.9 Obesity, unspecified; G62.9 Polyneuropathy, unspecified; F41.9 Anxiety disorder, unspecified; Z90.710 Acquired absence of both cervix and uterus; Z90.11 Acquired absence of right breast and nipple; Z98.49 Cataract extraction status, unspecified eye; Z98.890 Other specified postprocedural states; F17.210 Nicotine dependence, cigarettes, uncomplicated; N76.2 Acute vulvitis; N18.31 Chronic kidney disease, stage 3a; L22 Diaper dermatitis
CPT/HCPCS: 36415; 71045; 74177; 80053; 81001; 82803; 83605; 83690; 83735; 84484; 85025; 87077; 87086; 87186; 87428-QW; 93005; 93010; 94640; 94644; 94664; 94760; 94762; 96361; 96374; 96375; 97110; 97162; 97530; 99285-25; A9270; G0378; J0696; J2405; J2919; J3475; J3480; J7030; J7050; Q9967

== ENCOUNTER → 2024-07-04 | Outpatient (CLI) | payer OTHER ==
[~2024-07-04] MED LIST changes: +AMOX875 PO; +Cefpodoxime Pr100 MG PO; +DULERA 100 MCG/13 GM INH
[2024-07-04 15:03] LABS: BASOPHILS ABSOLUTE AUTO 0.03 K/mm3 (0.00-0.23); BASOPHILS PERCENT AUTO 1 % (0-2); EOSINOPHILS ABSOLUTE AUTO 0.08 K/mm3 (0.00-0.68); EOSINOPHILS PERCENT AUTO 2 % (0-6); Hematocrit 34.7 % (33.0-51.0); Hemoglobin 11.6 g/dL (11.5-16.0); IMMATURE GRAN ABSOLUTE AUTO 0.01 K/mm3 (0.00-0.10); IMMATURE GRAN PERCENT AUTO 0 % (0-1); LYMPHOCYTES ABSOLUTE AUTO 1.17 K/mm3 (0.84-5.20); LYMPHOCYTES PERCENT AUTO 29 % (21-46); MONOCYTES ABSOLUTE AUTO 0.47 K/mm3 (0.16-1.47); MONOCYTES PERCENT AUTO 12 % (4-13); Mean Corpuscular HGB Conc 33.4 g/dL (31.5-36.5); Mean Corpuscular Volume 93 fL (80-100); Mean Platelet Volume 11.7 fL (9.1-12.4); NEUTROPHILS ABSOLUTE AUTO 2.25 K/mm3 (1.96-9.15); NEUTROPHILS PERCENT AUTO 56 % (41-73); Platelet Count 262 K/mm3 (150-400); RDW Coefficient Variation 13.8 % (11.7-14.2); RDW Standard Deviation 47.2 fL (35.1-46.3); Red Blood Cell Count 3.74 M/mm3 (3.80-5.20); White Blood Cell Count 4.01 K/mm3 (4.00-11.30)
[2024-07-04 15:07] LABS: Albumin, Blood 2.9 g/dL (3.4-5.0); Bilirubin, Total 0.4 mg/dL (0.1-1.0); Globulin, Blood 2.8 g/dL (2.2-4.0); Potassium, Blood 3.3 mmol/L (3.5-5.5); Total Protein, Blood 5.7 g/dL (6.4-8.2)
== END ==
LOC: LAB 13:54 → LAB SHORT 13:54
PROVIDERS: Family Medicine
DX: R06.02 Shortness of breath (principal)
CPT/HCPCS: 80053; 85025

== ENCOUNTER 2024-07-19 15:06 | Emergency (ER) | payer OTHER ==
[~2024-07-19] VITALS: Ht 165.1 cm; Wt 77.1 kg
[~2024-07-19 15:06] MED LIST changes: -AZIT250 PO; -Ventolin5 MG/1 ML INH
[2024-07-19] MEDS ORDERED: Ipratropium/Albuterol SulF 2.5-0.5MG/3 ML Amp INH ONE (15:20)
[2024-07-19 15:44] LABS: BASOPHILS ABSOLUTE AUTO 0.01 K/mm3 (0.00-0.23); BASOPHILS PERCENT AUTO 0 % (0-2); EOSINOPHILS PERCENT AUTO 0 % (0-6); Hematocrit 39.2 % (33.0-51.0); Hemoglobin 13.2 g/dL (11.5-16.0); IMMATURE GRAN ABSOLUTE AUTO 0.03 K/mm3 (0.00-0.10); IMMATURE GRAN PERCENT AUTO 1 % (0-1); LYMPHOCYTES ABSOLUTE AUTO 0.99 K/mm3 (0.84-5.20); LYMPHOCYTES PERCENT AUTO 15 % (21-46); MONOCYTES ABSOLUTE AUTO 0.32 K/mm3 (0.16-1.47); MONOCYTES PERCENT AUTO 5 % (4-13); Mean Corpuscular HGB 30.3 pg (26.0-34.0); Mean Corpuscular HGB Conc 33.7 g/dL (31.5-36.5); Mean Corpuscular Volume 90 fL (80-100); Mean Platelet Volume 11.4 fL (9.1-12.4); NEUTROPHILS ABSOLUTE AUTO 5.24 K/mm3 (1.96-9.15); NEUTROPHILS PERCENT AUTO 79 % (41-73); Platelet Count 315 K/mm3 (150-400); RDW Coefficient Variation 13.2 % (11.7-14.2); RDW Standard Deviation 43.5 fL (35.1-46.3); Red Blood Cell Count 4.36 M/mm3 (3.80-5.20); White Blood Cell Count 6.59 K/mm3 (4.00-11.30)
[2024-07-19 16:09] LABS: Albumin, Blood 3.2 g/dL (3.4-5.0); Bilirubin, Total 0.2 mg/dL (0.1-1.0); Bun/Creatinine Ratio 19.4 (12.0-20.0); Calcium, Blood 8.5 mg/dL (8.5-10.1); Creatinine, Blood 1.08 mg/dL (0.40-1.00); Globulin, Blood 3.1 g/dL (2.2-4.0); Magnesium, Blood 1.5 mg/dL (1.6-2.4); Total Protein, Blood 6.3 g/dL (6.4-8.2)
[2024-07-19 16:21] LABS: Influenza A, PCR NEGATIVE (NEGATIVE); Influenza B, PCR NEGATIVE (NEGATIVE); Resp Syncytial Virus, PCR NEGATIVE (NEGATIVE); SARS-Cov-2 (COVID-19) PCR, MMC NEGATIVE (NEGATIVE)
[2024-07-19] MEDS ORDERED: Ipratropium/Albuterol SulF 2.5-0.5MG/3 ML Amp ONE (18:27)
[2024-07-19] MEDS ORDERED: Magnesium Sulf 2 GM/Water 50ML 50 ML IV ONE (18:30)
[2024-07-19] MEDS ORDERED: Potassium Chloride 20 MEQ TabCR PO ONE (18:30)
[2024-07-19] MEDS ORDERED: Potassium Chloride 20 MEQ/15 ML UDC PO ONE (18:30)
[2024-07-19] MEDS ORDERED: PredniSONE 20 MG Tab PO ONE (18:30)
[2024-07-19] MEDS ORDERED: Ventolin5 MG/1 ML INH (19:39)
[2024-07-19] MEDS ORDERED: PRED20 PO (19:39)
[2024-07-19] MEDS ORDERED: AZIT250 PO (19:39)
[2024-07-19] MEDS ORDERED: Azithromycin 250 MG Tab PO ONE (19:40)
[2024-07-19 19:59] VITALS: BP 109/75
== END 2024-07-19 20:02 | disposition home or self-care (01) ==
LOC: ER 15:06
PROVIDERS: Student in an Organized Health Care Education/Training Program
DX: J44.1 Chronic obstructive pulmonary disease with (acute) exacerbation (principal); E87.6 Hypokalemia; E83.42 Hypomagnesemia; E66.9 Obesity, unspecified; I12.9 Hypertensive chronic kidney disease with stage 1 through stage 4 chronic kidney disease, or unspecified chronic kidney disease; N18.30 Chronic kidney disease, stage 3 unspecified; F17.210 Nicotine dependence, cigarettes, uncomplicated; Z79.899 Other long term (current) drug therapy
CPT/HCPCS: 0241U; 71046; 80053; 83735; 83880; 85025; 93005; 93010; 94640; 94664; 96374; 99285-25; A9270; J3475; J7512

== ENCOUNTER → 2024-07-19 | Outpatient (CLI) | payer OTHER ==
[~2024-07-19] MED LIST changes: +AZIT250 PO; +Ventolin5 MG/1 ML INH
== END | disposition home or self-care (01) ==
LOC: LAB 14:38 → LAB SHORT 14:38
DX: R06.02 Shortness of breath (principal)
CPT/HCPCS: 83880

== ENCOUNTER → 2024-08-07 | Outpatient (CLI) | payer OTHER ==
[~2024-08-07] MED LIST changes: +AZIT250 PO; +Ventolin5 MG/1 ML INH
== END ==
LOC: LAB 12:30 → LAB SHORT 12:30
DX: Z46.6 Encounter for fitting and adjustment of urinary device (principal); N39.0 Urinary tract infection, site not specified; Z87.440 Personal history of urinary (tract) infections
CPT/HCPCS: 87077; 87086; 87186

== ENCOUNTER 2024-11-13 18:13 | Emergency (ER) | payer OTHER ==
[~2024-11-13] VITALS: Ht 162.6 cm; Wt 83.9 kg
[2024-11-13 18:48] LABS: BASOPHILS ABSOLUTE AUTO 0.04 K/mm3 (0.00-0.23); BASOPHILS PERCENT AUTO 1 % (0-2); EOSINOPHILS ABSOLUTE AUTO 0.08 K/mm3 (0.00-0.68); EOSINOPHILS PERCENT AUTO 1 % (0-6); Hematocrit 39.3 % (33.0-51.0); Hemoglobin 13.0 g/dL (11.5-16.0); IMMATURE GRAN ABSOLUTE AUTO 0.01 K/mm3 (0.00-0.10); IMMATURE GRAN PERCENT AUTO 0 % (0-1); LYMPHOCYTES ABSOLUTE AUTO 1.49 K/mm3 (0.84-5.20); LYMPHOCYTES PERCENT AUTO 26 % (21-46); MONOCYTES ABSOLUTE AUTO 0.37 K/mm3 (0.16-1.47); MONOCYTES PERCENT AUTO 6 % (4-13); Mean Corpuscular HGB Conc 33.1 g/dL (31.5-36.5); Mean Corpuscular Volume 92 fL (80-100); NEUTROPHILS ABSOLUTE AUTO 3.86 K/mm3 (1.96-9.15); NEUTROPHILS PERCENT AUTO 66 % (41-73); NRBC ABSOLUTE 0.00 K/mm3 (0.00-0.02); NRBC Auto 0.0 /100 WBC (0.0-0.2); Platelet Count 221 K/mm3 (150-400); RDW Coefficient Variation 15.0 % (11.7-14.2); RDW Standard Deviation 50.3 fL (35.1-46.3)
[2024-11-13] MEDS ORDERED: Ketorolac Tromethamine 30mg Vial IV ONE (19:05)
[2024-11-13 19:30] LABS: Alanine Aminotransfer (ALT/SGP 12.0 U/L (12-78); Albumin, Blood 3.4 g/dL (3.4-5.0); Albumin/Globulin Ratio 1.0 (0.8-1.8); Anion Gap 10.0 mmol/L (3-11); Aspartate Aminotrans (AST/SGOT 15.0 U/L (12-37); Bilirubin, Total 0.6 mg/dL (0.1-1.0); Blood Urea Nitrogen 21.0 mg/dL (8-24); CO2, Blood 24.0 mmol/L (21-32); Calcium, Blood 9.5 mg/dL (8.5-10.1); Chloride, Blood 108.0 mmol/L (98-108); Creatinine, Blood 1.05 mg/dL (0.40-1.00); Globulin, Blood 3.4 g/dL (2.2-4.0); Glucose, Blood 84.0 mg/dL (70-99); Potassium, Blood 3.4 mmol/L (3.5-5.5); Sodium, Blood 139.0 mmol/L (136-145); Total Protein, Blood 6.8 g/dL (6.4-8.2)
[2024-11-13] MEDS ORDERED: NS 500 ML IV SCH (21:00)
[2024-11-13 22:26] LABS: Source, Urine Straight Cath
[2024-11-13 22:31] LABS: Color, Urine Yellow (P-Yellow); Glucose Qualitative, Urine Neg (Neg); Ketones, Urine 3+ (Neg); Leukocyte Esterase, Urine 3+ (Neg); Protein, Urine 3+ (Neg); Specific Gravity, Urine 1.020 (1.003-1.022); Urobilinogen, Urine 1+ (Normal)
[2024-11-13 22:49] LABS: Bilirubin, Urine 1+ (Neg)
[2024-11-13 22:50] LABS: White Blood Cells, Urine TNTC /hpf (0-5)
[2024-11-13] MEDS ORDERED: CefTRIAXone Sodium 1,000 MG in NS 50 ML IV ONE (23:05)
[2024-11-13] MEDS ORDERED: Methyl Salicylate/Menth/Camph 57 GM TUBE TOP ONE (23:45)
[2024-11-14] MEDS ORDERED: CEFD300 PO (12:10)
[2024-11-14] MEDS ORDERED: CefTRIAXone Sodium 1,000 MG in NS 50 ML IV ONE (12:15)
[2024-11-14 14:23] VITALS: BP 164/92
== END 2024-11-14 14:24 | disposition home or self-care (01) ==
LOC: ER 18:13
PROVIDERS: Emergency Medicine
DX: N39.0 Urinary tract infection, site not specified (principal); E87.6 Hypokalemia; M25.512 Pain in left shoulder; I12.9 Hypertensive chronic kidney disease with stage 1 through stage 4 chronic kidney disease, or unspecified chronic kidney disease; N18.30 Chronic kidney disease, stage 3 unspecified; J44.9 Chronic obstructive pulmonary disease, unspecified; M35.3 Polymyalgia rheumatica; F17.210 Nicotine dependence, cigarettes, uncomplicated; Z93.50 Unspecified cystostomy status; Z79.01 Long term (current) use of anticoagulants; Z79.51 Long term (current) use of inhaled steroids; Z79.899 Other long term (current) drug therapy; Z59.89 Other problems related to housing and economic circumstances
CPT/HCPCS: 51705; 80053; 81001; 83605; 83690; 85025; 87086; 96365; 96366; 96375; 99284-25; A9270; C2627; J0696; J1885; J7030

== ENCOUNTER 2024-11-23 19:43 | Observation (INO) | payer OTHER ==
[~2024-11-23] VITALS: Ht 165.1 cm; Wt 70.0 kg
[~2024-11-23 19:43] MED LIST changes: +CEFD300 PO
[2024-11-23] MEDS ORDERED: NS 1,000 ML IV SCH (21:20)
[2024-11-23 22:00] LABS: BASOPHILS ABSOLUTE AUTO 0.04 K/mm3 (0.00-0.23); BASOPHILS PERCENT AUTO 1 % (0-2); EOSINOPHILS ABSOLUTE AUTO 0.10 K/mm3 (0.00-0.68); EOSINOPHILS PERCENT AUTO 2 % (0-6); Hematocrit 38.2 % (33.0-51.0); Hemoglobin 12.8 g/dL (11.5-16.0); IMMATURE GRAN ABSOLUTE AUTO 0.01 K/mm3 (0.00-0.10); IMMATURE GRAN PERCENT AUTO 0 % (0-1); LYMPHOCYTES ABSOLUTE AUTO 1.49 K/mm3 (0.84-5.20); LYMPHOCYTES PERCENT AUTO 33 % (21-46); MONOCYTES ABSOLUTE AUTO 0.51 K/mm3 (0.16-1.47); MONOCYTES PERCENT AUTO 11 % (4-13); Mean Corpuscular HGB Conc 33.5 g/dL (31.5-36.5); Mean Corpuscular Volume 90 fL (80-100); NEUTROPHILS ABSOLUTE AUTO 2.43 K/mm3 (1.96-9.15); NEUTROPHILS PERCENT AUTO 53 % (41-73); NRBC ABSOLUTE 0.00 K/mm3 (0.00-0.02); NRBC Auto 0.0 /100 WBC (0.0-0.2); Platelet Count 292 K/mm3 (150-400); RDW Coefficient Variation 15.0 % (11.7-14.2); RDW Standard Deviation 49.8 fL (35.1-46.3)
[2024-11-23 22:10] LABS: Source, Urine Foley catheter
[2024-11-23 22:17] LABS: Alanine Aminotransfer (ALT/SGP 13.0 U/L (12-78); Albumin, Blood 3.5 g/dL (3.4-5.0); Albumin/Globulin Ratio 1.1 (0.8-1.8); Anion Gap 8.0 mmol/L (3-11); Aspartate Aminotrans (AST/SGOT 13.0 U/L (12-37); Bilirubin, Total 0.4 mg/dL (0.1-1.0); Blood Urea Nitrogen 9.0 mg/dL (8-24); CO2, Blood 27.0 mmol/L (21-32); Calcium, Blood 8.8 mg/dL (8.5-10.1); Chloride, Blood 107.0 mmol/L (98-108); Creatinine, Blood 0.96 mg/dL (0.40-1.00); Globulin, Blood 3.3 g/dL (2.2-4.0); Glucose, Blood 88.0 mg/dL (70-99); Potassium, Blood 3.3 mmol/L (3.5-5.5); Sodium, Blood 139.0 mmol/L (136-145); Total Protein, Blood 6.8 g/dL (6.4-8.2)
[2024-11-23 22:22] LABS: Bilirubin, Urine Neg (Neg); Glucose Qualitative, Urine Neg (Neg); Ketones, Urine Neg (Neg); Leukocyte Esterase, Urine 3+ (Neg); Protein, Urine Neg (Neg); Specific Gravity, Urine 1.020 (1.003-1.022); Urobilinogen, Urine NORM (Normal)
[2024-11-23 22:41] LABS: Color, Urine Yellow (P-Yellow)
[2024-11-23 22:42] LABS: Red Blood Cells, Urine 0-2 /hpf (0-2); White Blood Cells, Urine 25-50 /hpf (0-5); Yeast/Fungi Urine Few /hpf
[2024-11-23] MEDS ORDERED: CefTRIAXone Sodium 1,000 MG in NS 50 ML IV ONE (23:05)
[2024-11-24 03:24] LABS: C DIFFICILE DNA NEGATIVE (Negative)
[2024-11-24] MEDS ORDERED: Ketorolac Tromethamine 15mg Vial IV ONE (03:25)
[2024-11-24 17:34] VITALS: BP 142/80
--- NOTE | 2024-11-24 18:22 | NUR ---
PT ARRIVED APPROX 1730. QUITE PLEASANT COOP A/O X3, NOT HAPPY ABOUT RECTAL TUBE. PER TENANT COORDINATOR NO STOOL SINCE 1AM. DISCUSSED WITH FINISH SANDER AND PT. PT STATES WOULD BE QUITE PLEASED TO HAVE OUT. DONE. SMALL SPLIT AT COCCYX. SOME BRUISING ON RT LOWER LEG. PT STATES DOES NOT TAKE INHALERS. TOO MUCH BOTHER. LUNGS LIGHTLY WHEEZY ON EXP. ON 2L O2 AT TRANSPORT FROM ER. DROPS TO 88 ON R/A., H/R REG, NO MURMUR NOTED. NO TELE. BT HYPOACTIVE. RECTAL TUBE REMOVED UPON ADMIT. VOIDS SUPRAPUBIC CATH. PT STATES HAD 2-3 YEARS. BLADDER JUST QUIT. YELLOW FLUID DRAINING. DENIES PAIN AT THIS TIME. STATES BEEN BED OR WHEELCHAIR BOUND FOR ABOUT A YEAR. BED IN LOW POSITION, CALL LITE IN REACH, CALLS APPROP
[2024-11-24] MEDS ORDERED: NS 250 ML IV PRN (19:45)
[2024-11-24 20:07] VITALS: BP 149/77
[2024-11-24] MEDS ORDERED: CefTRIAXone Sodium 1,000 MG in NS 100 ML IV SCH (21:00)
[2024-11-24] MEDS ORDERED: Acetaminophen 500MG/DP-Hydram 25MG HCL 1 Tab PO PRN (21:45)
[2024-11-24] MEDS ORDERED: Albuterol 2.5 MG/3 ML VIAL INH PRN (23:20)
[2024-11-25 02:48] VITALS: BP 132/77
[2024-11-25 05:24] LABS: BASOPHILS ABSOLUTE AUTO 0.03 K/mm3 (0.00-0.23); BASOPHILS PERCENT AUTO 1 % (0-2); EOSINOPHILS ABSOLUTE AUTO 0.23 K/mm3 (0.00-0.68); EOSINOPHILS PERCENT AUTO 6 % (0-6); Hematocrit 34.0 % (33.0-51.0); Hemoglobin 11.1 g/dL (11.5-16.0); IMMATURE GRAN ABSOLUTE AUTO 0.00 K/mm3 (0.00-0.10); IMMATURE GRAN PERCENT AUTO 0 % (0-1); LYMPHOCYTES ABSOLUTE AUTO 1.39 K/mm3 (0.84-5.20); LYMPHOCYTES PERCENT AUTO 37 % (21-46); MONOCYTES ABSOLUTE AUTO 0.48 K/mm3 (0.16-1.47); MONOCYTES PERCENT AUTO 13 % (4-13); Mean Corpuscular HGB Conc 32.6 g/dL (31.5-36.5); Mean Corpuscular Volume 92 fL (80-100); NEUTROPHILS ABSOLUTE AUTO 1.60 K/mm3 (1.96-9.15); NEUTROPHILS PERCENT AUTO 43 % (41-73); NRBC ABSOLUTE 0.00 K/mm3 (0.00-0.02); NRBC Auto 0.0 /100 WBC (0.0-0.2); Platelet Count 242 K/mm3 (150-400); RDW Coefficient Variation 15.0 % (11.7-14.2); RDW Standard Deviation 51.9 fL (35.1-46.3)
[2024-11-25 05:45] LABS: Anion Gap 7.0 mmol/L (3-11); Blood Urea Nitrogen 10.0 mg/dL (8-24); CO2, Blood 27.0 mmol/L (21-32); Calcium, Blood 8.1 mg/dL (8.5-10.1); Chloride, Blood 108.0 mmol/L (98-108); Creatinine, Blood 0.92 mg/dL (0.40-1.00); Glucose, Blood 111.0 mg/dL (70-99); Potassium, Blood 3.3 mmol/L (3.5-5.5); Sodium, Blood 139.0 mmol/L (136-145)
--- NOTE | 2024-11-25 06:25 | NUR ---
SHIFT SUMMARY AT START OF SHIFT, PT LYING IN BED WATCHING TV. PT HISTORY COMPLETED BY THIS RN. GI PANEL ORDERED, HOWEVER, PT HAS NOT HAD BM SINCE BEFORE ARRIVING TO THIS FLOOR. WILL PASS ON TO DAY SHIFT. PT IS SLEEPING COMFORTABLY AT THIS TIME.
[2024-11-25 07:42] VITALS: BP 139/81
[2024-11-25] MEDS ORDERED: Enoxaparin 40 MG/0.4 ML SYR SC SCH (09:00)
[2024-11-25 16:22] VITALS: BP 120/76
--- NOTE | 2024-11-25 17:31 | NUR ---
SHIFT SUMMARY PT CONT LEVEL OF CARE. PT REMAIN A&OX4 AND BEDREST D/T TO WEAKNESS. PT CONT WITH HALFWAY SUPRAPUBIC CATH. PLAN IS TO GO TO SNF AWAITING PLACEMENT.
[2024-11-25 19:43] VITALS: BP 144/79
--- NOTE | 2024-11-26 03:35 | NUR ---
SHIFT SUMMARY: PT SLEPT THROUGH OUT THE NIGHT. PT IS A0X4. CHRONIC SUPERPUBIC CATH IN PLACE. PLAN IS SNF PLACEMENT. NO ACUTE CHANGES THIS SHIFT.
[2024-11-26 04:16] VITALS: BP 172/86
[2024-11-26 05:42] LABS: BASOPHILS ABSOLUTE AUTO 0.04 K/mm3 (0.00-0.23); BASOPHILS PERCENT AUTO 1 % (0-2); EOSINOPHILS ABSOLUTE AUTO 0.21 K/mm3 (0.00-0.68); EOSINOPHILS PERCENT AUTO 6 % (0-6); Hematocrit 35.4 % (33.0-51.0); Hemoglobin 11.7 g/dL (11.5-16.0); IMMATURE GRAN ABSOLUTE AUTO 0.00 K/mm3 (0.00-0.10); IMMATURE GRAN PERCENT AUTO 0 % (0-1); LYMPHOCYTES ABSOLUTE AUTO 1.63 K/mm3 (0.84-5.20); LYMPHOCYTES PERCENT AUTO 47 % (21-46); MONOCYTES ABSOLUTE AUTO 0.45 K/mm3 (0.16-1.47); MONOCYTES PERCENT AUTO 13 % (4-13); Mean Corpuscular HGB Conc 33.1 g/dL (31.5-36.5); Mean Corpuscular Volume 93 fL (80-100); NEUTROPHILS ABSOLUTE AUTO 1.11 K/mm3 (1.96-9.15); NEUTROPHILS PERCENT AUTO 32 % (41-73); NRBC ABSOLUTE 0.00 K/mm3 (0.00-0.02); NRBC Auto 0.0 /100 WBC (0.0-0.2); Platelet Count 251 K/mm3 (150-400); RDW Coefficient Variation 15.0 % (11.7-14.2); RDW Standard Deviation 50.9 fL (35.1-46.3)
[2024-11-26 06:02] LABS: Anion Gap 9.0 mmol/L (3-11); Blood Urea Nitrogen 11.0 mg/dL (8-24); CO2, Blood 29.0 mmol/L (21-32); Calcium, Blood 8.1 mg/dL (8.5-10.1); Chloride, Blood 107.0 mmol/L (98-108); Creatinine, Blood 1.01 mg/dL (0.40-1.00); Glucose, Blood 95.0 mg/dL (70-99); Potassium, Blood 3.5 mmol/L (3.5-5.5); Sodium, Blood 141.0 mmol/L (136-145)
[2024-11-26 07:27] VITALS: BP 173/89
[2024-11-26 10:30] LABS: Campylobacter Sp Not Detected (NOT DETECT)
[2024-11-26 10:31] LABS: E. Coli O157 Not Detected (NOT DETECT); Enteroaggregative E. coli-EAEC Not Detected (NOT DETECT); Enteropathogenic E. coli-EPEC Not Detected (NOT DETECT); Enterotoxigenic E. coli-ETEC Not Detected (NOT DETECT); Salmonella Sp Not Detected (NOT DETECT); Shiga Toxin-prod E. coli-STEC Not Detected (NOT DETECT); Shigella/Enteroin E. coli-EIEC Not Detected (NOT DETECT); Vibrio Sp Not Detected (NOT DETECT)
[2024-11-26] MEDS ORDERED: HydrALAZINE HCl 20 MG / ML 1ML Vial IV PRN (10:40)
--- NOTE | 2024-11-26 14:53 | NUR ---
Pt. is awake in bed when she welcomes my visit. Pt. is pleasant. Facilitate a life story where matters of korey and belief are considered. Pt. verbalizes that she and her son to not have a place to live at the moment. Listen with empathy and a calming presence. Pt. displayed evidence of trust and engagement. Prayed with the Pt. Pt. 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
[2024-11-26 15:23] VITALS: BP 146/84
--- NOTE | 2024-11-26 16:59 | NUR ---
SHIFT SUMMARY NO ACUTE CHANGES, A/Ox4, ABLE TO MAKE NEEDS KNOWN AND CALLS APPROPRIATELY. SUPRAPUBIC CATHETER PATENT AND DRAINING CLEAR YELLOW URINE. PYRIDIUM STARTED FOR BLADDER DISCOMFORT - EFFECTIVE PER PT. TYLENOL ADMINITERED FOR "ALL OVER ACHE" PER EMAR. GOOD APPETITE. SMALL BM TODAY. C DIFF NEGATIVE AND TAKEN OFF CONTACT PRECAUTIONS. PLAN FOR SNF DISCHARGE. PT CURRENTLY RESTING IN BED WITH BED IN LOWEST POSITION AND CALL LIGHT WITHIN REACH.
[2024-11-26 19:51] VITALS: BP 160/96
[2024-11-27 03:08] VITALS: BP 165/92
[2024-11-27 06:02] LABS: BASOPHILS ABSOLUTE AUTO 0.03 K/mm3 (0.00-0.23); BASOPHILS PERCENT AUTO 1 % (0-2); EOSINOPHILS ABSOLUTE AUTO 0.11 K/mm3 (0.00-0.68); EOSINOPHILS PERCENT AUTO 3 % (0-6); Hematocrit 35.4 % (33.0-51.0); Hemoglobin 11.8 g/dL (11.5-16.0); IMMATURE GRAN ABSOLUTE AUTO 0.01 K/mm3 (0.00-0.10); IMMATURE GRAN PERCENT AUTO 0 % (0-1); LYMPHOCYTES ABSOLUTE AUTO 1.23 K/mm3 (0.84-5.20); LYMPHOCYTES PERCENT AUTO 36 % (21-46); MONOCYTES ABSOLUTE AUTO 0.39 K/mm3 (0.16-1.47); MONOCYTES PERCENT AUTO 11 % (4-13); Mean Corpuscular HGB Conc 33.3 g/dL (31.5-36.5); Mean Corpuscular Volume 89 fL (80-100); NEUTROPHILS ABSOLUTE AUTO 1.64 K/mm3 (1.96-9.15); NEUTROPHILS PERCENT AUTO 48 % (41-73); NRBC ABSOLUTE 0.00 K/mm3 (0.00-0.02); NRBC Auto 0.0 /100 WBC (0.0-0.2); Platelet Count 261 K/mm3 (150-400); RDW Coefficient Variation 14.9 % (11.7-14.2); RDW Standard Deviation 49.5 fL (35.1-46.3)
[2024-11-27 06:22] LABS: Anion Gap 8.0 mmol/L (3-11); Blood Urea Nitrogen 9.0 mg/dL (8-24); CO2, Blood 29.0 mmol/L (21-32); Calcium, Blood 8.5 mg/dL (8.5-10.1); Chloride, Blood 105.0 mmol/L (98-108); Creatinine, Blood 0.9 mg/dL (0.40-1.00); Glucose, Blood 90.0 mg/dL (70-99); Potassium, Blood 3.1 mmol/L (3.5-5.5); Sodium, Blood 139.0 mmol/L (136-145)
--- NOTE | 2024-11-27 06:22 | NUR ---
SHIFT SUMMARY 79 YR F ADMITTED ON 11/23/24. FULL CODE. PT WAS TRANSFERED FROM ROOM 336 TO 346 AT 1999. NO ACUTE CHANGES THIS SHIFT. PT IS A&O X 4 AND IS ABLE TO MAKE HER NEEDS KNOWN. SHE APPEARS TO HAVE SLEPT AND WATCHED TV OFF AND ON THROUGHOUT THE NIGHT. NO NEW CHANGES TO REPORT. BED IN LOW POSITION AND CALL LIGHT IN REACH.
[2024-11-27 07:20] VITALS: BP 148/110
[2024-11-27] MEDS ORDERED: PHENA200 PO (15:01)
[2024-11-27] MEDS ORDERED: POTCHL20ER PO (15:01)
--- NOTE | 2024-11-27 15:42 | NUR ---
DISCHARGE NOTE PT DISCHARGED TO [facility], REPORT GIVEN TO DOMINIK. IV REMOVED. PACKET PROVIDED TO THE LAWN AND GARDEN TECHNICIAN. [facility] DRAINED PRIOR TO TRANSPORT, BRIEF CHANGED. PERSONAL BELONGINGS RETURNED.
== END 2024-11-27 15:33 ==
LOC: ER 19:43 → MEDS 19:44
PROVIDERS: Emergency Medicine; Family Medicine; ADMIT Internal Medicine
DX: R53.1 Weakness (principal); W18.30XA Fall on same level, unspecified, initial encounter; R29.6 Repeated falls; I12.9 Hypertensive chronic kidney disease with stage 1 through stage 4 chronic kidney disease, or unspecified chronic kidney disease; N18.30 Chronic kidney disease, stage 3 unspecified; J44.9 Chronic obstructive pulmonary disease, unspecified; I25.10 Atherosclerotic heart disease of native coronary artery without angina pectoris; F32.A Depression, unspecified; F41.9 Anxiety disorder, unspecified; G89.29 Other chronic pain; N31.9 Neuromuscular dysfunction of bladder, unspecified; D72.819 Decreased white blood cell count, unspecified; E66.9 Obesity, unspecified; Z68.25 Body mass index [BMI] 25.0-25.9, adult; Z79.01 Long term (current) use of anticoagulants; Z79.899 Other long term (current) drug therapy; Z86.711 Personal history of pulmonary embolism; Z96.0 Presence of urogenital implants
CPT/HCPCS: 36415; 70450; 72125; 80048; 80053; 81001; 82607; 82746; 83605; 83690; 85025; 87040; 87086; 87493; 87507; 93005; 93010; 96365; 96366; 96375; 97110; 97112; 97161; 97165; 97530; 99285-25; A9270; G0378; J0360; J0696; J1885; J7030; J7050